=== PATIENT | male | born 1980 | race Caucasian/White ===

== ENCOUNTER 2021-09-24 00:47 | Day surgery (SDC) | payer OTHER, SELFPAY ==
[2021-09-09 13:40] VITALS: BMI 40.1
[2021-09-24 08:04] VITALS: BP 146/80; PULSE 66; RESP 18; TEMP 36.3; O2SAT 100
[2021-09-24] MEDS: LACTATED RINGERS 1,000 ML 150 ML IV CONT (08:11)
--- NOTE | 2021-09-24 08:12 | WPDANESEPPF ---
Anes - Initial Pre Proc Eval Procedure: Operation Date: 09/24/21 09:00 Proposed Procedures p Esophagogastroduodenoscopy - Patrice Vance MD Date/Time: 09/24/21 08:12 Surgeon: Patrice Vance MD Pre Op Diagnosis: Mendez's Esophagus Patient Data Age: 40 Gender: M Height: 1.78 m Weight: 128.3 kg Last Vital Signs Temp 36.3 C L 09/24/21 08:04 Pulse 66 09/24/21 08:04 Resp 18 09/24/21 08:04 BP 146/80 H 09/24/21 08:04 Pulse Ox 100 09/24/21 08:04 O2 Del Method Room Air 09/24/21 08:04 Allergies Allergy/AdvReac Type Severity Reaction Status Date / Time prochlorperazine Allergy Mild Jittery Verified 09/24/21 08:02 [From Compazine] lisinopril AdvReac Cough Verified 09/24/21 08:02 Home Medications Medication Instructions Recorded Confirmed Type esomeprazole magnesium 40 mg 40 mg PO DAILY #90 caps 09/23/21 09/24/21 Rx capsule,delayed release (Nexium) losartan 50 mg-hydrochlorothiazide 1 tablet PO DAILY #90 tabs 09/23/21 09/24/21 Rx 12.5 mg tablet valacyclovir 1 gram tablet 2,000 mg PO Q12H PRN Cold Sores 09/23/21 09/24/21 Rx #20 tabs Patient hx anesthesia problems: none Family hx anesthesia problems: none Results Review: All pre-operative results and documents have been reviewed as part of the pre-operative evaluation. [facility] Past Medical History Medical History Adynamic ileus Dehydration Essential (primary) hypertension GERD (gastroesophageal reflux disease) With history of Mendez esophagus. History of small bowel obstruction Resolved with conservative treatment. Hx of migraines Small bowel obstruction due to adhesions Surgical History Surgical History History of repaired congenital digestive system anomaly Congenital diaphragmatic hernia History of tonsillectomy S/P left inguinal herniorrhaphy Status post appendectomy Status post cholecystectomy 2006. Family History Family History Mother Family history of thyroid disease Family history of mental disorder Hypertension Father Hypertension Social History Social History Social History: He is and lives with his , Celia, and ER nurse here at [place], and there 2 children in [place]. 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 Clounga. He denies alcohol, tobacco, and drug abuse. He is a full code. Smoking status: Never smoker Drinks per week: 1 Alcohol use details: occasional, social Anes - Eval Final PreProcedure Day of Procedure 09/24/21 08:12 Patient weight: morbidly obese Heart: regular rate and rhythm Lungs: clear to auscultation Neurological: alert and oriented Last oral intake: >/= 8 hours ASA classification: III Emergent: no Anesthetic plan: proceed Anesthesia type and monitoring: general GIVS and standard monitoring Results Review: All pre-operative results and documents have been reviewed as part of the pre-operative evaluation. Informed Consent: The patient's anesthetic plan and its attendant risks and benefits were discussed with the patient/family/POA. Questions were solicited and answers provided to the satisfaction of the patient/family/POA.
--- NOTE | 2021-09-24 08:19 | PM.IMHP ---
H&P: HPI History of Present Illness Date/Time: 09/24/21 08:19 Chief Complaint: Barretts esophagus Narrative: this is a 40-year-old white male patient who presents for screening EGD. Patient known to have Barretts esophagus. Currently is stable denies any heartburn. Has had no dysphagia or bleeding. Currently may need on Nexium 40mg p.o. daily. He does report over last 2 weeks the sensation of a pill or popcorn caught in his throat. This does not interfere with swallowing. [facility] Past Medical History Medical History Adynamic ileus Dehydration Essential (primary) hypertension GERD (gastroesophageal reflux disease) With history of Mendez esophagus. History of small bowel obstruction Resolved with conservative treatment. Hx of migraines Small bowel obstruction due to adhesions Surgical History Surgical History History of repaired congenital digestive system anomaly Congenital diaphragmatic hernia History of tonsillectomy S/P left inguinal herniorrhaphy Status post appendectomy Status post cholecystectomy 2006. Family History Family History Mother Family history of thyroid disease Family history of mental disorder Hypertension Father Hypertension Social History Social History Social History: He is and lives with his , Celia, and ER nurse here at [place], and there 2 children in [place]. 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 He denies alcohol, tobacco, and drug abuse. He is a full code. Smoking status: Never smoker Drinks per week: 1 Alcohol use details: occasional, social Meds Home Medications and Allergies Home Medications Medication Instructions Recorded Confirmed Type esomeprazole magnesium 40 mg 40 mg PO DAILY #90 caps 09/23/21 09/24/21 Rx capsule,delayed release (Nexium) losartan 50 mg-hydrochlorothiazide 1 tablet PO DAILY #90 tabs 09/23/21 09/24/21 Rx 12.5 mg tablet valacyclovir 1 gram tablet 2,000 mg PO Q12H PRN Cold Sores 09/23/21 09/24/21 Rx #20 tabs Allergies Allergy/AdvReac Type Severity Reaction Status Date / Time prochlorperazine Allergy Mild Jittery Verified 09/24/21 08:02 [From Compazine] lisinopril AdvReac Cough Verified 09/24/21 08:02 Vital Signs Vital Signs - 24 hr 09/24/21 08:04 Temperature 97.4 F L Pulse Rate 66 Respiratory Rate 18 Blood Pressure 146/80 H Pulse Oximetry 100 Oxygen Delivery Room Air Exam Narrative: Physical exam reveals patient to be alert. Vital signs stable. HEENT exam is unremarkable. Patient is anicteric. Lungs are clear to auscultation and percussion. Heart is without murmur or extra sounds. Abdominal exam bowel sounds present soft nontender with no organomegaly. Digital external rectal exam is normal. Assessment and Plan Assessment and plan (1) Mendez's esophagus: Code(s): K22.70 - Mendez's esophagus without dysplasia Status: Acute Assessment and Plan: Patient has a history of Barretts esophagus. Currently appears stable with Nexium 40mg p.o. daily. Surveillance EGD is advised now on at 3 year intervals in the future. As he approaches age 43 suggest all info at age 43 he also have screening colonoscopy.
[2021-09-24 09:20] VITALS: BP 122/77; PULSE 60; RESP 16; O2SAT 100
[2021-09-24 09:30] VITALS: BP 118/75; PULSE 60; RESP 16; O2SAT 100
[2021-09-24 09:40] VITALS: BP 133/74; PULSE 60; RESP 18; O2SAT 100
== END 2021-09-24 09:52 | disposition home or self-care (01) ==
PROVIDERS: PCP Family Medicine; Visit Provider Internal Medicine Gastroenterology
PROC: 0DJ08ZZ Inspection of Upper Intestinal Tract, Via Natural or Artificial Opening Endoscopic (ICD-10-PCS; CPT 43235; principal; 2021-09-24 09:00)
DX: K22.70 Barrett's esophagus without dysplasia (principal); K56.0 Paralytic ileus; I10 Essential (primary) hypertension; K21.9 Gastro-esophageal reflux disease without esophagitis; E66.01 Morbid (severe) obesity due to excess calories; Z68.41 Body mass index [BMI] 40.0-44.9, adult
CPT/HCPCS: 43239; 88305; J2704; J7120

== ENCOUNTER 2021-09-24 07:16 | Outpatient (CLI) | payer OTHER, SELFPAY ==
[2021-09-24 07:39] LABS: Basophils Percent Auto 0.4 % (0.2-1.2); Eosinophils Absolute Auto 0.1 K/mm3 (0-0.3); Eosinophils Percent Auto 2.5 % (0-4.4); Hematocrit 46.5 % (42.0-52.0); Hemoglobin 15.6 g/dL (14.0-18.0); Immature Granulocyte Absolute 0.01 K/mm3 (0.00-0.031); Immature Granulocyte Percent A 0.2 % (0-0.5); Lymphocytes Absolute Auto 1.63 K/mm3 (0.9-3.2); Lymphocytes Percent Auto 31.7 % (18.3-44.2); Mean Corpuscular HGB Conc 33.5 g/dl (32-36); Mean Corpuscular Volume 86.4 fl (80-100); Mean Platelet Volume 9.4 fl (7.4-10.4); Monocytes Absolute Auto 0.5 K/mm3 (0.1-0.6); Monocytes Percent Auto 9.5 % (2.6-8.5); Neutrophils Absolute Auto 2.9 K/mm3 (1.3-6.7); Neutrophils Percent Auto 55.7 % (45.5-73.1); Platelet Count Result 233 k/mm3 (150-375); Red Blood Count 5.38 M/mm3 (4.6-6.20); Red Cell Distribution Width 12.7 % (11.5-14.5); White Blood Count 5.1 K/mm3 (4.5-10.0)
[2021-09-24 07:52] LABS: Alanine Aminotransferase 51 U/L (6-50); Albumin Level 4.3 g/dL (3.5-5.1); Alkaline Phosphatase 48 U/L (38-126); Anion Gap 8 mmol/L (8-16); Aspartate Amino Transferase 31 U/L (17-59); Bilirubin,Total 0.6 mg/dL (0.2-1.3); Blood Urea Nitrogen 17 mg/dL (9-20); Calcium 9.2 mg/dL (8.4-10.2); Carbon Dioxide 26 mmol/L (22-30); Chloride 104 mmol/L (98-107); Cholesterol 208 mg/dL (0-200); Estimated Glomerular Filt Rate > 60; Glucose 109 mg/dL (65-110); HDL Direct 28 mg/dL; Potassium 4.3 mmol/L (3.4-5.0); Sodium 138 mmol/L (137-145); Triglycerides 182 mg/dL (<150)
[2021-09-24 08:03] LABS: LDL Cholesterol Direct 124 mg/dL
== END 2021-09-24 07:17 | disposition home or self-care (01) ==
PROVIDERS: PCP Family Medicine; Visit Provider Physician Assistant
DX: Z00.00 Encounter for general adult medical examination without abnormal findings (principal)
CPT/HCPCS: 36415; 80053; 80061; 84443; 85025

== ENCOUNTER 2021-12-13 15:18 | Outpatient (CLI) | payer OTHER, SELFPAY ==
--- NOTE | 2021-12-13 15:27 | ECG_ITS ---
Measurements Intervals [place] Rate: 63 P: 20 GA: 163 QRS: 14 QRSD: 101 T: 10 QT: 400 QTc: 412 Interpretive Statements SINUS RHYTHM NO PREVIOUS ECG AVAILABLE FOR COMPARISON Electronically Signed On 12-14-2021 13:10:49 CDT by Estee Mcneill M.D.
[2021-12-13 16:17] LABS: Anion Gap 11 mmol/L (8-16); Blood Urea Nitrogen 12 mg/dL (9-20); Calcium 8.9 mg/dL (8.4-10.2); Carbon Dioxide 27 mmol/L (22-30); Chloride 101 mmol/L (98-107); Estimated Glomerular Filt Rate > 60; Glucose 93 mg/dL (65-110); Potassium 3.7 mmol/L (3.4-5.0); Sodium 139 mmol/L (137-145)
== END 2021-12-13 15:19 | disposition home or self-care (01) ==
LOC: ANHSURGERY 15:22
PROVIDERS: Anesthesiology; PCP Family Medicine; Visit Provider Otolaryngology
DX: I10 Essential (primary) hypertension (principal); Z01.818 Encounter for other preprocedural examination
CPT/HCPCS: 36415; 80048; 93005

== ENCOUNTER 2021-12-17 01:46 | Day surgery (SDC) | payer OTHER, SELFPAY ==
--- NOTE | 2021-12-07 08:48 | SUR.PREOP ---
Report to the Outpatient Waiting Room, entrance under the green pavilion located off [facility], at time 0945 on date 12/17/21. OR Time: 1145. Time changes happen often and if your time is changed the preop area will call you the afternoon before. - You and your visitor will be asked to self-screen and do not enter if you have any COVID symptoms. - Only one visitor and NO children visitors are allowed at this time. - The patient visitor is requested to leave or wait in car when not with patient due to restrictions. - A mask is required within the hospital. Patients may have clear liquids (water, carbonated beverages, clear teas, apple juice) until 3 hours prior to surgery with a maximum of 20 ounces. - NO CLEAR LIQUIDS AFTER 0845 - No food from midnight until time of surgery - Infants may have breast milk until 4 hours before surgery, infant formula 6 hours prior to surgery. - Children will be allowed to drink immediately following surgery. If applicable, please bring a bottle or sippy cup to assist with drinking. Juice, water, soda, and popsicles are readily available. For infants on formula, please bring formula the day of surgery. Pacifiers are allowed. Take the following medications with a SIP of water the morning of surgery: NONE Please no make-up, nail malagasy, hairspray, perfume, deodorant, or body powder the day of surgery. No jewelry (including any body piercings) or valuables the day of surgery, leave them at home. Please take a shower or bath the night before, or the morning of, surgery with an antibacterial soap. Wear comfortable, loose fitting clothing. Children are encouraged to wear pajamas. - Jewelry must be removed prior to entering the operating room. Rings and piercings that are not removed may be cut off. - The hospital will not accept responsibility for valuables. - Please leave all valuables, including medications, at home the day of surgery. If you are going home after surgery, a licensed electric truck driver must drive you home. - NO public transportation without another adult. - We recommend that an adult stay with you for 24 hours following discharge. - We also recommend that you do not drive, make important decision, drink alcoholic beverages, or take any drugs that were not prescribed by your health care provider for at least 24 hours after your discharge time. For Pediatric surgeries, we recommend two adults accompany the child home (only one inside the building at this time). Follow any additional instructions given to you from your surgeon. If you or anyone in your household have experienced Covid symptoms in the past week, please notify your surgeon or the nurse liaison at the phone number below for possible testing. Telephone instructions given to ESTEVAN OWENS and asked if any additional questions and then verbalized understanding. Patient advised to call surgeon office or pre surgery nurse liaison [phone] if any additional questions.
[2021-12-07 09:16] VITALS: BMI 39.5
--- NOTE | 2021-12-16 11:40 | P.HP_ITS ---
H&P: HPI History of Present Illness Date/Time: 12/16/21 11:40 Chief Complaint: Globus sensation vocal cord leukoplakia Narrative: planned surgical procedure/biopsy Review of Systems Review of Systems: All systems reviewed & are unremarkable except as noted in HPI and below PMFSH Past Medical History Medical History Adynamic ileus Dehydration Essential (primary) hypertension GERD (gastroesophageal reflux disease) With history of Mendez esophagus. History of small bowel obstruction Resolved with conservative treatment. Hx of migraines Small bowel obstruction due to adhesions Surgical History Surgical History History of repaired congenital digestive system anomaly Congenital diaphragmatic hernia History of tonsillectomy S/P left inguinal herniorrhaphy Status post appendectomy Status post cholecystectomy 2006. Family History Family History Mother Family history of thyroid disease Family history of mental disorder Hypertension Father Hypertension Social History Social History Social History: He is and lives with his , Celia, and ER nurse here at [place], and there 2 children in [place]. 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 He denies alcohol, tobacco, and drug abuse. He is a full code. Smoking status: Never smoker Drinks per week: 1 Alcohol use details: occasional, social Spiritual care concerns: No Meds Home Medications and Allergies Home Medications Medication Instructions Recorded Confirmed Type esomeprazole magnesium 40 mg 40 mg PO DAILY #90 caps 09/23/21 12/07/21 Rx capsule,delayed release (Nexium) losartan 50 mg-hydrochlorothiazide 1 tablet PO DAILY #90 tabs 09/23/21 12/07/21 Rx 12.5 mg tablet valacyclovir 1 gram tablet 2,000 mg PO Q12H PRN Cold Sores 09/23/21 12/07/21 Rx #20 tabs azelastine 137 mcg (0.1 %) nasal 1 spray intranasal DAILY 12/07/21 12/07/21 History spray aerosol Allergies Allergy/AdvReac Type Severity Reaction Status Date / Time lisinopril Allergy Severe Cough Verified 12/07/21 08:59 prochlorperazine Allergy Severe Jittery Verified 12/07/21 08:59 [From Compazine] Exam Narrative: normal ENT exam boggy sinonasal mucosa Assessment and Plan Assessment and plan (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
--- NOTE | 2021-12-17 07:19 | WPDHPUPDATE1 ---
History and Physical Update Update Date/Time: 12/17/21 07:19 History and Physical has been reviewed, including an updated exam of the patient. There are NO changes in the patient's condition. Risks, benefits, and alternatives have been discussed and questions answered. Patient agrees to proceed with procedure.
[2021-12-17 09:05] VITALS: BP 145/88; PULSE 69; RESP 18; TEMP 36.1; O2SAT 99
[2021-12-17] MEDS: LACTATED RINGERS 1,000 ML 30 ML IV CONT (09:11)
[2021-12-17] MEDS: MIDAZOLAM HCL (*CRX) 2 MG/2 ML VIAL IV PUSH (09:40)
--- NOTE | 2021-12-17 09:49 | WPDANESEPPF ---
Anes - Initial Pre Proc Eval Procedure: Operation Date: 12/17/21 10:45 Proposed Procedures p Direct Laryngoscopy, with Biopsy and Endoscope - Ted Alarcon MD Date/Time: 12/17/21 09:49 Surgeon: Ted Alarcon MD Pre Op Diagnosis: vocal cord leukoplakia Patient Data Age: 41 Gender: M Height: 1.78 m Weight: 127.3 kg Last Vital Signs Temp 36.1 C L 12/17/21 09:05 Pulse 69 12/17/21 09:05 Resp 18 12/17/21 09:05 BP 145/88 H 12/17/21 09:05 Pulse Ox 99 12/17/21 09:05 O2 Del Method Room Air 12/17/21 09:05 Allergies Allergy/AdvReac Type Severity Reaction Status Date / Time lisinopril Allergy Severe Cough Verified 12/17/21 09:25 prochlorperazine Allergy Severe Jittery Verified 12/17/21 09:25 [From Compazine] Home Medications Medication Instructions Recorded Confirmed Type esomeprazole magnesium 40 mg 40 mg PO DAILY #90 caps 09/23/21 12/17/21 Rx capsule,delayed release (Nexium) losartan 50 mg-hydrochlorothiazide 1 tablet PO DAILY #90 tabs 09/23/21 12/17/21 Rx 12.5 mg tablet valacyclovir 1 gram tablet 2,000 mg PO Q12H PRN Cold Sores 09/23/21 12/17/21 Rx #20 tabs azelastine 137 mcg (0.1 %) nasal 1 spray intranasal DAILY 12/07/21 12/17/21 History spray aerosol Patient hx anesthesia problems: none Family hx anesthesia problems: none Results Review: All pre-operative results and documents have been reviewed as part of the pre-operative evaluation. [facility] Past Medical History Medical History Adynamic ileus Dehydration Essential (primary) hypertension GERD (gastroesophageal reflux disease) With history of Mendez esophagus. History of small bowel obstruction Resolved with conservative treatment. Hx of migraines Small bowel obstruction due to adhesions Surgical History Surgical History History of repaired congenital digestive system anomaly Congenital diaphragmatic hernia History of tonsillectomy S/P left inguinal herniorrhaphy Status post appendectomy Status post cholecystectomy 2006. Family History Family History Mother Family history of thyroid disease Family history of mental disorder Hypertension Father Hypertension Social History Social History Social History: He is and lives with his , Celia, and ER nurse here at [place], and there 2 children in [place]. 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 He denies alcohol, tobacco, and drug abuse. He is a full code. Smoking status: Never smoker Drinks per week: 1 Alcohol use details: occasional, social Living arrangements: with family Spiritual care concerns: No Anes - Eval Final PreProcedure Day of Procedure 12/17/21 09:49 Patient weight: morbidly obese Heart: regular rate and rhythm Lungs: clear to auscultation Airway: Mallampati scale class II Neurological: alert and oriented Last oral intake: >/= 8 hours ASA classification: III Emergent: no Anesthetic plan: proceed Anesthesia type and monitoring: general ETT and standard monitoring Results Review: All pre-operative results and documents have been reviewed as part of the pre-operative evaluation. Informed Consent: The patient's anesthetic plan and its attendant risks and benefits were discussed with the patient/family/POA. Questions were solicited and answers provided to the satisfaction of the patient/family/POA.
[2021-12-17 11:42] VITALS: BP 131/83; PULSE 64; RESP 16; TEMP 36.2; O2SAT 100
--- NOTE | 2021-12-17 11:51 | P.OP_ITS ---
Procedure Note - Detailed Date of Procedure 12/17/21 Pre-op Diagnosis vocal cord leukoplakia, left-sided Post-op Diagnosis Same Procedure Performed direct laryngoscopy biopsy of left posterior true vocal cord Surgeon Ted Alarcon MD Anesthesia General Indications see above Findings left posterior cord leukoplakia excess skin tissue biopsied non sinister appearing minimal bleeding Description of Procedure patient identified consent verified. Patient brought operating room. Time-out performed. General anesthesia induced, slightly difficult airway glide scope at be used endotracheal tube secured. Patient prepped pat prepped draped bed rotated. Dedo laryngoscope utilized adequate view of the posterior cords visualized. This occurred after the placement of a maxillary tooth mouth guard. Patient was then placed in suspension. Left leukoplakic region biopsied after LT applied. Endoscope utilized. Bleeding controlled with application of Afrin- soaked pledgets. Laryngoscope removed patient taken out of suspension maxillary tooth mouth guard removed. Care the patient given Anesthesiology blood loss essentially 0. I performed all dictated portions of the procedure. patient taken to PACU. Drains No Packing No Pathology Yes Complications No immediate complications Condition Stable Disposition PACU
[2021-12-17 11:55] VITALS: BP 121/77; PULSE 60; RESP 14; O2SAT 100
[2021-12-17 12:10] VITALS: BP 133/85; PULSE 76; RESP 18; O2SAT 99
[2021-12-17 12:17] VITALS: BP 140/94; PULSE 68; RESP 18
[2021-12-17 12:40] VITALS: BP 140/86; PULSE 66
== END 2021-12-17 12:50 | disposition home or self-care (01) ==
PROVIDERS: PCP Family Medicine; Visit Provider Otolaryngology
PROC: 0CJS8ZZ Inspection of Larynx, Via Natural or Artificial Opening Endoscopic (ICD-10-PCS; CPT 31535; principal; 2021-12-17 10:45)
DX: J38.3 Other diseases of vocal cords (principal); K56.0 Paralytic ileus; I10 Essential (primary) hypertension; K21.9 Gastro-esophageal reflux disease without esophagitis; Z90.49 Acquired absence of other specified parts of digestive tract; E66.01 Morbid (severe) obesity due to excess calories; Z68.41 Body mass index [BMI] 40.0-44.9, adult
CPT/HCPCS: 31535; 88305; A9270; J0330; J2250; J2405; J2704; J3010; J7120

== ENCOUNTER 2022-02-10 16:39 | Outpatient (CLI) | payer OTHER, SELFPAY ==
--- NOTE | ~2022-02-10 | XR_ITS ---
XR knee LT min 4V 02/10/2022 17:14 Indication: Left knee pain for one year Procedure: 4 views left knee Comparison: No prior studies for comparison. Findings: There is anatomic alignment. No fracture, subluxation or dislocation. No significant joint space narrowing. No joint effusion. Impression: 1: No significant bone or joint abnormality. Reviewed, dictated and finalized at location A. IZATION REVIEWER Impression: 1: No significant bone or joint abnormality.
== END 2022-02-10 16:40 | disposition home or self-care (01) ==
LOC: ANHIMG 16:43
PROVIDERS: PCP Family Medicine; Visit Provider Physician Assistant
DX: M25.562 Pain in left knee (principal)
CPT/HCPCS: 73564

== ENCOUNTER → 2022-04-23 07:34 | Outpatient (CLI) | payer OTHER, SELFPAY ==
--- NOTE | ~2022-04-23 | MR_ITS ---
EXAMINATION: MR knee LT wo con DATE: 04/23/2022 08:13 INDICATION: Generalized knee pain. TECHNIQUE: Magnetic resonance imaging (MRI) of the left knee was performed without intravenous contra st. Sequences included axial PD-weighted FS FSE, coronal PD-weighted FSE and PD-weighted FS FSE, sagi ttal PD-weighted FSE, and sagittal T2-weighted FS FSE. COMPARISON: X-ray left knee 03/29/2022, images only. FINDINGS: Medial compartment: Intact meniscus no focal cartilage defect. Lateral compartment: No focal cartilage defect. Patellofemoral compartment: 6 mm focal near full-thickness cartilage defect with fraying and subjacent subchondral cyst formation in the superior aspect of the median ridge. Cartilage otherwise intact. Retinacula intact. Ligaments and tendons: ACL, PCL, MCL, and LCL are intact. Remaining flexor and extensor tendons are intact. Fluid: Small volume joint fluid. Osseous/other: No suspicious focal or diffuse marrow signal. IMPRESSION: 1. No internal derangement. 2. Chondromalacia patellae. 3. Small left knee joint effusion. Reviewed, dictated and finalized at location K. STRAIGHTENER
== END ==
PROVIDERS: Visit Provider Nurse Practitioner Family
DX: M25.462 Effusion, left knee (principal)
CPT/HCPCS: 73721

== ENCOUNTER 2022-09-07 20:23 | Emergency (ER) | payer OTHER, SELFPAY ==
--- NOTE | ~2022-09-07 | CT_ITS ---
EXAMINATION: CT abdomen pelvis wo con DATE: 09/07/2022 20:57 INDICATION: Left flank pain TECHNIQUE: Computed tomography (CT) of the abdomen and pelvis was performed without intravenous contr ast. Automated exposure control and iterative reconstruction technique were employed. Exam dose: 241 4.59 mGy-cm total exam DLP. COMPARISON: 01/09/2019 CT abdomen pelvis FINDINGS: The lung bases are clear of infiltrate or consolidation. Surgical clips are noted at the posterior aspect of the left lower lobe. There is chronic prominent f at density in the posterior lower left thoracic cavity, apparently related to foramen of Bochdalek he rnia. Prominent fat-containing left anterolateral abdominal spigelian hernia, also present on 01/09/2019.. Normal heart size. No pericardial or pleural effusion. Status post cholecystectomy. No bile duct or pancreatic duct dilatation. No hepatic, splenic, pancreatic, adrenal or renal space-occupying mass lesion is detected. Normal caliber of the abdominal aorta. No intraperitoneal or retroperitoneal or pelvic mass lesion or adenopathy or ascites. There is a prominent of fecal material in the colon. No bowel obstruction or intraperitoneal free air is detected. The urinary bladder and prostate gland are unremarkable. Bilateral fat-containing inguinal hernias and very small fat-containing umbilical hernia. No suspicious osteolytic or osteoblastic lesions are noted. IMPRESSION: Large chronic fat-containing foramen of Bochdalek hernia Large chronic fat-containing left abdominal spigelian hernia No urinary tract calculus or hydroureteronephrosis Status post cholecystectomy Reviewed, dictated and finalized at [facility]. Reviewed, dictated and finalized at [facility].
[2022-09-07 20:30] VITALS: BP 156/106; RESP 18; TEMP 36.6; O2SAT 99
[2022-09-07 20:56] LABS: Basophils Percent Auto 0.7 % (0.2-1.2); Eosinophils Absolute Auto 0.2 K/mm3 (0-0.3); Eosinophils Percent Auto 3.4 % (0-4.4); Hematocrit 46.2 % (42.0-52.0); Immature Granulocyte Absolute 0.01 K/mm3 (0.00-0.031); Immature Granulocyte Percent A 0.2 % (0-0.5); Lymphocytes Absolute Auto 2.52 K/mm3 (0.9-3.2); Lymphocytes Percent Auto 43.2 % (18.3-44.2); Mean Corpuscular HGB Conc 34.6 g/dl (32-36); Mean Corpuscular Volume 86.7 fl (80-100); Mean Platelet Volume 9.8 fl (7.4-10.4); Monocytes Absolute Auto 0.5 K/mm3 (0.1-0.6); Monocytes Percent Auto 8.6 % (2.6-8.5); Neutrophils Absolute Auto 2.6 K/mm3 (1.3-6.7); Neutrophils Percent Auto 43.9 % (45.5-73.1); Platelet Count Result 218 k/mm3 (150-375); Red Blood Count 5.33 M/mm3 (4.6-6.20); Red Cell Distribution Width 12.6 % (11.5-14.5); White Blood Count 5.8 K/mm3 (4.5-10.0)
[2022-09-07] MEDS: ACETAMINOPHEN 500 MG TABLET 1000 MG PO (21:06)
[2022-09-07] MEDS: HYDROmorphone HCL INJ (*CRX) 1 MG/ML SYR 0.5 MG IV PUSH (21:06)
[2022-09-07] MEDS: SODIUM CHLORIDE 0.9% IV 2,000 ML 999 ML IV CONT (21:07)
[2022-09-07 21:12] LABS: Alanine Aminotransferase 53 U/L (6-50); Albumin Level 4.3 g/dL (3.5-5.1); Alkaline Phosphatase 53 U/L (38-126); Anion Gap 7 mmol/L (8-16); Aspartate Amino Transferase 49 U/L (17-59); Bilirubin,Total 0.5 mg/dL (0.2-1.3); Blood Urea Nitrogen 14 mg/dL (9-20); Calcium 8.7 mg/dL (8.4-10.2); Carbon Dioxide 30 mmol/L (22-30); Chloride 103 mmol/L (98-107); Estimated Glomerular Filt Rate > 60; Glucose 120 mg/dL (65-110); Potassium 3.9 mmol/L (3.4-5.0); Sodium 140 mmol/L (137-145)
[2022-09-07 21:14] VITALS: PULSE 67; RESP 24; O2SAT 99
[2022-09-07 21:15] VITALS: PULSE 73; RESP 21; O2SAT 98
[2022-09-07] MEDS: methocarbamoL 750 MG TABLET 1500 MG PO (21:15)
[2022-09-07 21:23] LABS: Lipase 51 U/L (23-300)
[2022-09-07 21:30] VITALS: PULSE 71; RESP 20; O2SAT 98
[2022-09-07 21:40] LABS: Appearance Urine Clear (Clear); Bilirubin Urine Negative (Negative); Blood Urine Negative (Negative); Color Urine Yellow (Yellow); Glucose Urine UA Negative (Negative); Ketones Urine Negative (Negative); Leukocyte Esterase Ur Negative LEU/UL (Negative); Nitrate Urine Negative (Negative); Protein Urine Negative (Negative)
[2022-09-07 21:45] VITALS: PULSE 71; RESP 17; O2SAT 98
[2022-09-07 21:46] LABS: Add Urine Microscopic? NO
[2022-09-07 22:00] VITALS: PULSE 78; RESP 17
--- NOTE | 2022-09-07 22:04 | ED.GENADULT ---
HPI - General Adult General Chief complaint: Urogenital-Male Stated complaint: left flank pain Time Seen by Provider: 09/07/22 20:27 History of Present Illness HPI narrative: This is a 41-year-old male presenting ED with chief complaint of left-sided back pain. Patient said the pain started Monday morning was originally stabbing pain but is now transitioned into an achy pain. It is primarily in his left lower back. It is 5 out 10 intensity and comes and goes. He has had pain like this in the past and thought it may have been a kidney stone but never was evaluated by physician. The pain is worse with movement. He has not taken anything for pain control. He did have an episode of testicular pain on the right side although that has resolved he has no complaints at this time. patient does do weightlifting and has recently taken up disc golf. Related Data Home Medications Medication Instructions Recorded Confirmed azelastine 137 mcg (0.1 %) nasal 1 spray intranasal DAILY 12/07/21 02/08/22 spray aerosol Allergies Allergy/AdvReac Type Severity Reaction Status Date / Time lisinopril Allergy Severe Cough Verified 09/07/22 20:24 prochlorperazine Allergy Severe Jittery Verified 09/07/22 20:24 [From Compazine] PMF Past Medical History Medical History Adynamic ileus Defect of articular cartilage Dehydration Essential (primary) hypertension GERD (gastroesophageal reflux disease) With history of Mendez esophagus. History of small bowel obstruction Resolved with conservative treatment. Hx of migraines Left knee pain Medial meniscus tear Small bowel obstruction due to adhesions Surgical History Surgical History History of repaired congenital digestive system anomaly Congenital diaphragmatic hernia History of tonsillectomy S/P left inguinal herniorrhaphy Status post appendectomy Status post cholecystectomy 2006. Family History Family History Mother Family history of thyroid disease Family history of mental disorder Hypertension Father Hypertension Social History Social History Social History: He is and lives with his , Celia, and ER nurse here at [place], and there 2 children in [place]. 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 He denies alcohol, tobacco, and drug abuse. He is a full code. Smoking status: Never smoker Alcohol intake: current Drinks per week: 1 Alcohol use details: occasional, social Substance use type: does not use Lack of Transportation: No Lack of Food: Never True Current Housing: I Have Housing Concerned About Future Housing: No Difficulty Paying Gas/Electric Bills: No Difficulty Paying for Meds: No Currently Unemployed: No Education: Associate Degree Difficulty w/ Childcare or Family Care: No Living arrangements: with family Spiritual care concerns: No Exam Narrative: APPEARANCE: No apparent distress. Head: atraumatic. EYES: EOMI, NOSE: Atraumatic NECK: Trachea midline RESPIRATORY: No increased rate of breathing CARDIOVASCULAR: RRR, ABDOMINAL: soft nontender no guarding or rebound, no CVA tenderness. Testicle exam: No tenderness of the testicle, swelling or overlying skin changes. MUSCULOSKELETAl: no midline spinal tenderness. No tenderness in the paralumbar muscles. NEURO: Alert. Moving 4/4 extremities SKIN:: Warm, dry. Normal color PSYCHIATRIC: Normal affect Course Vital Signs Vital signs: Vital Signs Temperature 97.8 F 09/07/22 20:30 Respiratory Rate 18 09/07/22 20:30 Blood Pressure 156/106 H 09/07/22 20:30 Pulse Oximetry 99 09/07/22 20:30 Oxygen Delivery Room Air 09/07/22 20:30 Temperature 97.8 F 09/07/22 20:30 Pulse Rate 78
== END 2022-09-07 22:25 | disposition home or self-care (01) ==
PROVIDERS: Emergency Provider Emergency Medicine; PCP Family Medicine
DX: M54.50 Low back pain, unspecified (principal); I10 Essential (primary) hypertension; K21.9 Gastro-esophageal reflux disease without esophagitis; Z87.760 Personal history of (corrected) congenital diaphragmatic hernia or other congenital diaphragm malformations; Z90.49 Acquired absence of other specified parts of digestive tract
CPT/HCPCS: 36415; 74176; 80053; 81003; 83690; 85025; 96361; 96374; 99284; A9270; J1170; J7030

== ENCOUNTER 2023-01-29 02:51 | Inpatient (IN) | payer OTHER, SELFPAY ==
--- NOTE | ~2023-01-29 | CT_ITS ---
EXAMINATION: CT abdomen pelvis w con INDICATION: Abdominal pain, history of small bowel obstruction TECHNIQUE: Computed tomographic images of the abdomen and pelvis were obtained after the administrati on of 100 cc of Omnipaque 350 intravenous contrast. The dose-length product (DLP) was 1610.48 mGy-cm. Automated exposure control and iterative reconstruction technique were employed. COMPARISON: 09/08/2019 FINDINGS: Minimal dependent atelectasis is present in the lung bases. The heart size is normal. There is a left posterior diaphragmatic hernia containing fat. Changes of cholecystectomy are noted. The l iver, spleen, pancreas, gallbladder, and adrenal glands are normal. The kidneys are unremarkable. No pathologically enlarged abdominal or pelvic lymph nodes are identified. There are multiple dilated lo ops of small bowel. No abrupt transition point is identified. Stool is present in the large bowel. Th ere is no free intraperitoneal gas. There is mild lumbar spondylosis. There are bilateral L3 pars def ects. There is a spigelian hernia of the left lower quadrant containing fat there are bilateral ingui nal hernias containing fat as well as a tiny supraumbilical hernia.. IMPRESSION: 1. Dilated small bowel without abrupt transition point, consistent with adynamic ileus or partial obs truction. Reviewed, dictated and finalized at location [facility]. RGLASS BOAT ASSEMBLY SUPERVISOR IMPRESSION: 1. Dilated small bowel without abrupt transition point, consistent with adynami c ileus or partial obstruction.
--- NOTE | ~2023-01-29 | XR_ITS ---
EXAMINATION: XR sm bowel follow through DATE: 01/30/2023 10:02 INDICATION: Small bowel obstruction. TECHNIQUE: Oral contrast was administered, and a time course of radiographs of the abdomen was obtain ed. Fluoroscopy of the small bowel was not performed. Fluoroscopy exposure time was 0 minutes. The to franko number of images was 9. COMPARISON: CT abdomen and pelvis 01/29/2023 FINDINGS: The nasogastric tube tip is in the stomach. There are surgical clips in the upper abdomen. There are multiple dilated loops of proximal small bowel. Distal small bowel is decompressed. The colon is norm al in caliber. Transit time from the stomach to proximal colon was approximately 1 hour. IMPRESSION: 1. Dilated small bowel without transition point by CT with normal transit time to the colon, consiste nt with adynamic ileus. Reviewed, dictated and finalized at location [facility]. RMATICA MDM DEVELOPER IMPRESSION: 1. Dilated small bowel without transition point by CT with normal transit time to the colon, consistent with adynamic ileus.
--- NOTE | ~2023-01-29 | XR_ITS ---
Supine and upright views of the abdomen Clinical history: Small bowel obstruction COMPARISON: 01/30/2023 Findings: Bowel gas pattern is nonspecific. No evidence for obstruction or free air. No abnormal mass lesion or calcification is seen. Osseous structures are intact. Impression: Nonspecific bowel gas pattern. Reviewed, dictated and finalized at [facility]. HER SPONGER Impression: Nonspecific bowel gas pattern.
--- NOTE | ~2023-01-29 | XR_ITS ---
EXAMINATION: XR abdomen gastric tube insert INDICATION: Nasogastric tube insertion TECHNIQUE: Portable AP [id number] at 0544 hours COMPARISON: None available FINDINGS: The nasogastric tube is in the stomach. There are multiple dilated loops of small bowel. Co ntrast from earlier CT partially opacifies the urinary tract. IMPRESSION: 1. Nasogastric tube in the stomach. 2. Dilated small bowel, consistent with adynamic ileus versus partial obstruction. Reviewed, dictated and finalized at location [facility]. MOTIVE GENERATOR REPAIRER IMPRESSION: 1. Nasogastric tube in the stomach. 2. Dilated small bowel, consistent with adynamic ileus versus partial obstructi on.
[2023-01-29 02:56] VITALS: BP 155/100; PULSE 90; RESP 18; TEMP 36.6; O2SAT 98
[2023-01-29 03:28] LABS: Basophils Percent Auto 0.4 % (0.2-1.2); Eosinophils Absolute Auto 0.1 K/mm3 (0-0.3); Eosinophils Percent Auto 0.9 % (0-4.4); Hematocrit 49.8 % (42.0-52.0); Hemoglobin 16.4 g/dL (14.0-18.0); Immature Granulocyte Absolute 0.01 K/mm3 (0.00-0.031); Immature Granulocyte Percent A 0.1 % (0-0.5); Lymphocytes Absolute Auto 0.82 K/mm3 (0.9-3.2); Lymphocytes Percent Auto 11.7 % (18.3-44.2); Mean Corpuscular HGB Conc 32.9 g/dl (32-36); Mean Corpuscular Hemoglobin 29.2 pg (26-34); Mean Corpuscular Volume 88.6 fl (80-100); Mean Platelet Volume 9.8 fl (7.4-10.4); Monocytes Absolute Auto 0.7 K/mm3 (0.1-0.6); Neutrophils Absolute Auto 5.4 K/mm3 (1.3-6.7); Neutrophils Percent Auto 76.9 % (45.5-73.1); Platelet Count Result 211 k/mm3 (150-375); Red Blood Count 5.62 M/mm3 (4.6-6.20); Red Cell Distribution Width 13.1 % (11.5-14.5)
[2023-01-29 03:42] LABS: Alanine Aminotransferase 62 U/L (6-50); Albumin Level 4.3 g/dL (3.5-5.1); Alkaline Phosphatase 53 U/L (38-126); Anion Gap 10 mmol/L (8-16); Aspartate Amino Transferase 41 U/L (17-59); Bilirubin,Total 0.8 mg/dL (0.2-1.3); Blood Urea Nitrogen 12 mg/dL (9-20); Calcium 9.1 mg/dL (8.4-10.2); Carbon Dioxide 29 mmol/L (22-30); Chloride 100 mmol/L (98-107); Estimated CRCL calculation 94 ml/min; Estimated Glomerular Filt Rate > 60; Glucose 128 mg/dL (65-110); Lipase 37 U/L (23-300); Potassium 3.9 mmol/L (3.4-5.0); Sodium 139 mmol/L (137-145)
[2023-01-29 03:54] LABS: Appearance Urine Clear (Clear); Bacteria Urine None Seen /hpf; Bilirubin Urine 1+ (Negative); Blood Urine Negative (Negative); Color Urine Dark Yellow (Yellow); Glucose Urine UA Negative (Negative); Ketones Urine Trace mg/dL (Negative); Leukocyte Esterase Ur Negative LEU/UL (Negative); Nitrate Urine Negative (Negative); Non Pathogenic Casts 0-2; Protein Urine Trace mg/dL (Negative); RBC Urine 0-2 /hpf (0-2); Specific Grav Ur 1.035 (1.001-1.035); Squamous Epithelial Cell Urine None seen /hpf (Few); WBC Urine 0-5 /hpf; pH Urine 5.5 (5.0-9.0)
[2023-01-29 03:57] LABS: Add Urine Microscopic? YES
[2023-01-29 03:59] LABS: Lactic Acid Reflex 1.6 mmol/L (0.7-2.0)
[2023-01-29] MEDS: HYDROmorphone HCL INJ (*CRX) 1 MG/ML SYR 0.5 MG IV PUSH ×2 (04:51→05:57)
[2023-01-29 04:54] VITALS: BP 119/71; PULSE 90; RESP 15; O2SAT 97
--- NOTE | 2023-01-29 04:56 | ED.GENADULT ---
HPI - General Adult General Chief complaint: Abdominal Pain Stated complaint: abd pain, N/V Time Seen by Provider: 01/29/23 04:51 History of Present Illness HPI narrative: This is a 42-year-old male with recurrent small-bowel obstruction presenting with abdominal pain. Patient says he started developed bloating and abdominal discomfort 2 or 3 days ago, then last night it got acutely worse. Now patient is having nausea vomiting and distention. He has had multiple small-bowel obstructions in the past. They typically resolve without surgical intervention after decompression. Related Data Home Medications Medication Instructions Recorded Confirmed azelastine 137 mcg (0.1 %) nasal 1 spray intranasal DAILY 12/07/21 12/26/22 spray aerosol Allergies Allergy/AdvReac Type Severity Reaction Status Date / Time lisinopril Allergy Severe Cough Verified 12/26/22 16:31 prochlorperazine Allergy Severe Jittery Verified 12/26/22 16:31 [From Compazine] [facility] Past Medical History Medical History Adynamic ileus Defect of articular cartilage Dehydration Essential (primary) hypertension GERD (gastroesophageal reflux disease) With history of Mendez esophagus. History of small bowel obstruction Resolved with conservative treatment. Hx of migraines Left knee pain Medial meniscus tear Small bowel obstruction due to adhesions Surgical History Surgical History History of repaired congenital digestive system anomaly Congenital diaphragmatic hernia History of tonsillectomy S/P left inguinal herniorrhaphy Status post appendectomy Status post cholecystectomy 2006. Family History Family History Mother Family history of thyroid disease Family history of mental disorder Hypertension Father Hypertension Social History Social History Social History: He is and lives with his , Celia, and ER nurse here at [place], and there 2 children in [place]. 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 He denies alcohol, tobacco, and drug abuse. He is a full code. Smoking status: Never smoker Alcohol intake: current Drinks per week: 1 Alcohol use details: occasional, social Substance use type: does not use Lack of Transportation: No Lack of Food: Never True Current Housing: I Have Housing Concerned About Future Housing: No Difficulty Paying Gas/Electric Bills: No Difficulty Paying for Meds: No Currently Unemployed: No Education: Associate Degree Difficulty w/ Childcare or Family Care: No Living arrangements: with family Spiritual care concerns: No Exam Narrative: APPEARANCE: No apparent distress. Head: atraumatic. EYES: EOMI, NOSE: Atraumatic NECK: Trachea midline RESPIRATORY: No increased rate of breathing CARDIOVASCULAR: RRR, ABDOMINAL: Distended, tender to palpation MUSCULOSKELETAl: No obvious deformities NEURO: Alert. Moving 4/4 extremities SKIN:: Warm, dry. Normal color PSYCHIATRIC: Normal affect Course Vital Signs Vital signs: Vital Signs Temperature 97.8 F 01/29/23 02:56 Pulse Rate 90 01/29/23 02:56 Respiratory Rate 18 01/29/23 02:56 Blood Pressure 155/100 H 01/29/23 02:56 Pulse Oximetry 98 01/29/23 02:56 Oxygen Delivery Room Air 01/29/23 02:56 Temperature 97.8 F 01/29/23 02:56 Pulse Rate 90 01/29/23 04:54 Respiratory Rate 15 01/29/23 04:54 Blood Pressure 119/71 01/29/23 04:54 Pulse Oximetry 97 01/29/23 04:54 Oxygen Delivery Room Air 01/29/23 02:56 Medical Decision Making MDM Narrative Medical decision making narrative: -Course: 42-year-old male history of small-bowel obstruction presenting for abdominal pain. CT abdomen pelvis shows multiple dilated loops of bowel wh
[2023-01-29 06:30] VITALS: BP 113/64; PULSE 84; RESP 15; O2SAT 95
[2023-01-29 07:55] VITALS: BP 149/90; PULSE 98; RESP 16; TEMP 36.1; O2SAT 98; BMI 40.4
[2023-01-29] MEDS: LACTATED RINGERS 1,000 ML 125 ML IV CONT (08:01)
[2023-01-29 08:05] VITALS: BMI 40.2
--- NOTE | 2023-01-29 08:07 | ADMGEN ---
This patient, Feliciano Nair, was admitted to [facility] Surg Room 314-01. Patient/family oriented to hospital policies and general routines including ID bracelet, bed and alarms, visiting hours, pain management, procedures, bathroom and other care routines, personal items, smoking policy, room service/diet, and visiting hours. Information on how to activate the Rapid Response Team has been discussed. Patient/Family are encouraged to report perceived risks to care and to ask questions if they do not understand what they are told or what they should do.
[2023-01-29] MEDS: MORPHINE SULFATE (*CRX) 4 MG/ML INJ IV PUSH ×5 (10:41→21:23)
[2023-01-29] MEDS: ENOXAPARIN 30 MG/0.3 ML SYRINGE 40 MG SUB-Q (10:46)
[2023-01-29] MEDS: KCL 20MEQ/0.9% SOD CHL 1,000 ML 100 ML IV CONT ×2 (12:49→21:23)
[2023-01-29 13:30] VITALS: BP 123/59; PULSE 86; RESP 16; TEMP 36.9; O2SAT 96
--- NOTE | 2023-01-29 16:51 | PM.IMHP ---
H&P: HPI History of Present Illness Date/Time: 01/29/23 10:51 Chief Complaint: Abdominal pain and vomiting Narrative: Patient is a 42-year-old man who has a history of repair of congenital diaphragmatic hernia as a . He has also had laparoscopic cholecystectomy in 2006 and earlier appendectomy. Since at least 2001, he has had multiple episodes of recurrent small-bowel obstruction. After reviewing past records, it seems this is about the 10th episode in 11 years. His last episode was in 2019, nearly 4 years ago. The patient at this time developed abdominal pain and bloating about 3 days ago. He then noted increasing pain and abdominal distension. He then developed nausea and vomiting. Being aware of the symptoms of bowel obstruction, he came to the emergency room and was evaluated. His exam showed his abdomen to be distended and diffusely tender without any peritoneal signs. His white blood cell count was normal at 7000. Serum lactate and bicarb were both within the normal range. CT scan of the abdomen and pelvis did show multiple loops of dilated small bowel without a distinct transition point. It was felt to represent small bowel obstruction or ileus. A nasogastric tube was placed in the emergency room and a liter of gastric content was retrieved. He was admitted with nasogastric tube and IV fluids as well as analgesics. When I saw him this morning, he was feeling much better but still having some abdominal discomfort and tenderness. He is admitted now for abdominal pain and vomiting, most likely a recurrent small-bowel obstruction. His CT scan also showed some additional hernias. A left posterior diaphragmatic hernia containing fat was noted. There was also a small supraumbilical hernia and a left lower quadrant spigelian hernia containing fat. Finally there were fat containing bilateral inguinal hernias noted. Review of Systems Review of Systems: All systems reviewed & are unremarkable except as noted in HPI and below (HPI and those items noted below) Constitutional: Constitutional: Denies chills and Denies fever(s) Cardiovascular: Cardiovascular: Denies chest pain, Denies diaphoresis, Denies dyspnea and Denies paroxysmal nocturnal dyspnea Respiratory: Respiratory: Denies chest congestion, Denies cough and Denies dyspnea Integumentary/Breasts: Skin/Breast: Denies lesions and Denies rash ON LICENSE OF [facility] Past Medical History Medical History (Updated 01/29/23 @ 17:11 by Guanako Lawson MD) Adynamic ileus Defect of articular cartilage Dehydration Essential (primary) hypertension GERD (gastroesophageal reflux disease) With history of Mendez esophagus. History of small bowel obstruction Resolved with conservative treatment. Hx of migraines Left knee pain Medial meniscus tear Small bowel obstruction due to adhesions Surgical History Surgical History History of repaired congenital digestive system anomaly Congenital diaphragmatic hernia History of tonsillectomy S/P left inguinal herniorrhaphy Status post appendectomy Status post cholecystectomy 2006. Family History Family History Mother Family history of thyroid disease Family history of mental disorder Hypertension Father Hypertension Social History Social History Social History: He is and lives with his , Celia, and ER nurse here at [place], and there 2 children in [place]. 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 He denies alcohol, tobacco, and drug abuse. He is a full code. Smoking status: Never smoker Alcohol intake: current Drinks per week: 1 Alcohol use details: occasional, social Substance use type: does not use Lack of Transportation: No Lack of Food: Never True Current Housing: I Have Housing Concerned About Future Housing: No Dif
[2023-01-29] MEDS: PHENOL/SOD PHENO SPRAY CHERRY (*BKC) 1 SPRAY MUCOUS MEM (18:53)
[2023-01-29] MEDS: traZODone HCL 50 MG TABLET PO (20:23)
[2023-01-29 20:25] VITALS: BP 119/64; PULSE 83; RESP 18; TEMP 36.5; O2SAT 94
[2023-01-30 05:43] VITALS: BP 127/86; PULSE 77; RESP 16; TEMP 36.9; O2SAT 98
[2023-01-30 06:37] LABS: Hematocrit 44.1 % (42.0-52.0); Hemoglobin 14.9 g/dL (14.0-18.0); Mean Corpuscular HGB Conc 33.8 g/dl (32-36); Mean Corpuscular Hemoglobin 29.7 pg (26-34); Mean Platelet Volume 9.4 fl (7.4-10.4); Platelet Count Result 189 k/mm3 (150-375); Red Blood Count 5.01 M/mm3 (4.6-6.20); Red Cell Distribution Width 13.2 % (11.5-14.5); White Blood Count 4.2 K/mm3 (4.5-10.0)
[2023-01-30 06:48] LABS: Anion Gap 7 mmol/L (8-16); Blood Urea Nitrogen 12 mg/dL (9-20); Calcium 8.3 mg/dL (8.4-10.2); Carbon Dioxide 26 mmol/L (22-30); Chloride 107 mmol/L (98-107); Estimated CRCL calculation 102 ml/min; Estimated Glomerular Filt Rate > 60; Glucose 104 mg/dL (65-110); Potassium 3.9 mmol/L (3.4-5.0); Sodium 140 mmol/L (137-145)
[2023-01-30] MEDS: KCL 20MEQ/0.9% SOD CHL 1,000 ML 100 ML IV CONT (06:58)
[2023-01-30] MEDS: ENOXAPARIN 40 MG/0.4 ML SYRINGE SUB-Q (10:12)
[2023-01-30 14:00] VITALS: BP 149/87; PULSE 77; RESP 14; TEMP 36.3; O2SAT 97
--- NOTE | 2023-01-30 15:09 | PM.PNGS ---
Progress Note: A&P Assessment and Plan (1) Obstruction of small intestine due to peritoneal adhesion: Code(s): K56.50 - Intestinal adhesions [bands], unspecified as to partial versus complete obstruction Status: Acute Assessment and Plan: Seems to have resolved. I will go ahead and get a water-soluble contrast small-bowel follow-through. If shows normal transit, will discontinue nasogastric tube and try some liquids. (2) History of congenital diaphragmatic hernia: Code(s): Z87.760 - Personal history of (corrected) congenital diaphragmatic hernia or other congenital diaphragm malformations Status: Chronic Assessment and Plan: Repaired as an infant. Also had appendectomy at that same time. (3) Ventral hernia without obstruction or gangrene: Code(s): K43.9 - Ventral hernia without obstruction or gangrene Status: Chronic Assessment and Plan: As noted on CT scan (4) Spigelian hernia: Code(s): K43.9 - Ventral hernia without obstruction or gangrene Status: Chronic Assessment and Plan: As noted on CT scan Subjective Subjective Date/Time Seen: 01/30/23 07:49 Patient reports: no new complaints, feels better, pain is less (Small amount of bilateral lower quadrant abdominal tenderness but no pain), flatus, no bowel movement and afebrile Review of Systems Review of Systems: All systems reviewed & are unremarkable except as noted in HPI and below (HPI) Exam Const: General: comfortable and no acute distress Nutritional Appearance: overweight Orientation/consciousness: patient oriented x3 GI: Inspection: non-distended and scar (Upper abdominal scar, laparoscopic cholecystectomy scars) GI Palp: Yes Soft to palpation, No Tenderness to palpation present (GI), No Guarding due to palpation present (GI), No Hepatosplenomegaly present, No Ascites present and No Rebound tenderness present Auscultation: normoactive bowel sounds Neuro: General: patient oriented x3 and no focal motor deficits Extrem: General: no calf tenderness and no edema Psych: Affect: normal affect Insight: Good insight present (Psych) Judgement: Good judgement present (Psych) Objective Data Vital Signs Vital Signs: Vital Signs - 24 hr 01/29/23 20:25 01/30/23 05:43 01/30/23 14:00 Temperature 36.5 C 36.9 C 36.3 C L Pulse Rate 83 77 77 Respiratory Rate 18 16 14 Blood Pressure 119/64 127/86 149/87 H Pulse Oximetry 94 98 97 Intake/Output Intake/Output: Intake & Output 01/27/23 01/28/23 01/29/23 01/30/23 23:59 23:59 23:59 23:59 Intake Total 1000 2690 Output Total 1300 3150 Balance -300 -460 Meds/Results Medications: Active Medications Generic Name Dose Route Start Last Admin Trade Name Freq PRN Reason Stop Dose Admin Enoxaparin Sodium 40 mg 01/30/23 09:00 01/30/23 10:12 Enoxaparin 40 Mg/0.4 Ml Syringe SUB-Q 40 mg DAILY IRENE Administration Ibuprofen 800 mg in 200 mls @ 400 mls/hr 01/29/23 09:54 Caldolor 800 Mg/200 Ml IVPB Q6H PRN Pain Rated 1-3 Morphine Sulfate 2 mg 01/29/23 09:54 Morphine Sulfate (*Crx) 2 Mg/Ml Inj IV PUSH Q2H PRN Pain Rated 4-6 Morphine Sulfate 4 mg 01/29/23 09:54 01/29/23 21:23 Morphine Sulfate (*Crx) 4 Mg/Ml Inj IV PUSH 4 mg Q2H PRN Administration Pain Rated 7-10 Naloxone HCl 0.1 mg 01/29/23 09:54 Naloxone Hcl 0.4 Mg/Ml Vial IV PUSH Q2M PRN Opiate Reversal Phenol 1 spray 01/29/23 15:17 01/29/23 18:53 Phenol/Sod Pheno Charlotte Kitchen (*Bkc) MUCOUS MEM 1 spray PRN PRN Administration Sore Throat Trazodone HCl 50 mg 01/29/23 17:12 01/29/23 20:23 Trazodone Hcl 50 Mg Tablet PO 50 mg HS PRN Administration Insomnia Radiology Results: ITS Impressions Abdomen/Pelvis CT 01/29/23 06:14 IMPRESSION: 1. Dilated small bowel without abrupt transition point, consistent with adynamic ileus or partial obstruction. Abdomen X-Ray
[2023-01-30 21:13] VITALS: BP 138/95; PULSE 67; RESP 18; TEMP 36.6; O2SAT 96
[2023-01-30] MEDS: traZODone HCL 50 MG TABLET PO (22:31)
[2023-01-31 04:55] VITALS: BP 121/72; PULSE 65; RESP 16; TEMP 36.5; O2SAT 100
[2023-01-31 06:48] LABS: Hematocrit 44.7 % (42.0-52.0); Hemoglobin 14.8 g/dL (14.0-18.0); Mean Corpuscular HGB Conc 33.1 g/dl (32-36); Mean Corpuscular Hemoglobin 29.5 pg (26-34); Mean Platelet Volume 9.6 fl (7.4-10.4); Platelet Count Result 203 k/mm3 (150-375); Red Blood Count 5.02 M/mm3 (4.6-6.20); White Blood Count 4.5 K/mm3 (4.5-10.0)
[2023-01-31 07:10] LABS: Anion Gap 10 mmol/L (8-16); Blood Urea Nitrogen 8 mg/dL (9-20); Calcium 8.5 mg/dL (8.4-10.2); Carbon Dioxide 26 mmol/L (22-30); Chloride 104 mmol/L (98-107); Estimated CRCL calculation 102 ml/min; Estimated Glomerular Filt Rate > 60; Glucose 107 mg/dL (65-110); Potassium 3.6 mmol/L (3.4-5.0); Sodium 140 mmol/L (137-145)
[2023-01-31] MEDS: ENOXAPARIN 40 MG/0.4 ML SYRINGE SUB-Q (08:23)
--- NOTE | 2023-01-31 10:57 | PM.DS ---
DS: Admitting Diagnosis Discharge Date 01/31/23 Admitting Diagnosis Small bowel obstruction DS: Discharge Diagnosis Discharge Diagnosis (1) Obstruction of small intestine due to peritoneal adhesion: Code(s): K56.50 - Intestinal adhesions [bands], unspecified as to partial versus complete obstruction Status: Acute (2) Spigelian hernia: Code(s): K43.9 - Ventral hernia without obstruction or gangrene Status: Chronic Assessment and Plan: Noted only on CT scan.? No symptoms or complaints regarding this. (3) Ventral hernia without obstruction or gangrene: Code(s): K43.9 - Ventral hernia without obstruction or gangrene Status: Chronic Assessment and Plan: Small supraumbilical ventral hernia containing fat.? No complaints or symptoms regarding this. Not an acute issue at this time but patient is aware. (4) History of congenital diaphragmatic hernia: Code(s): Z87.760 - Personal history of (corrected) congenital diaphragmatic hernia or other congenital diaphragm malformations Status: Chronic (5) Essential (primary) hypertension: Code(s): I10 - Essential (primary) hypertension Status: Chronic Assessment and Plan: BP stable. No acute issues. Continue home medications on discharge. (6) GERD (gastroesophageal reflux disease): Qualifiers: Esophagitis presence: esophagitis presence not specified Qualified Code(s): K21.9 - Gastro-esophageal reflux disease without esophagitis Code(s): K21.9 - Gastro-esophageal reflux disease without esophagitis Status: Chronic Assessment and Plan: No acute issues. Continue home medication. DS: Summary Hospital Course Reason for hospitalization: Patient is a 42-year-old man who has a history of repair of congenital diaphragmatic hernia as a .? He has also had laparoscopic cholecystectomy in 2006 and earlier appendectomy.? Since at least 2001, he has had multiple episodes of recurrent small-bowel obstructions.? He presented to the ER with complaints of abdominal pain and bloating x 3 days, nausea, and vomiting. Workup in the ER showed CT evidence of a dilated small bowel without definitive transition point, suggesting partial small bowel obstruction vs ileus. He was admitted in this setting.? Hospital Course: He was treated conservatively with NG tube decompression, bowel rest, IV fluids, and analgesics. He showed clinical improvement by the following day and had a water-soluble small bowel follow through, which showed dilated small bowel with contrast reaching the colon in 1 hour, consistent with ileus. Bowel function returned following his small bowel series. NG tube was removed and he was slowly advanced to a low residue diet. He continues to improve this morning and is no longer having any abdominal pain, nausea, or vomiting. He is tolerating a low fiber diet. Discussed with Dr. Lawson and patient is stable for discharge today. Status at Discharge Functional status at discharge: independent ambulation Overall status at discharge: patient is back to baseline Time Spent with Patient Time attestation: Total time spent providing and/or coordinating discharge services: Time spent: Less than 30 minutes Exam Const: General: comfortable and no acute distress Orientation/consciousness: patient oriented x3 GI: Inspection: non-distended GI Palp: Yes Soft to palpation, No Tenderness to palpation present (GI), No Guarding due to palpation present (GI) and No Rebound tenderness present Percussion: Yes normal to percussion Auscultation: normal bowel sounds DS: Data Data Completed and Pending Labs on day of discharge: Labs from last 24 hours 01/31/23 06:22 WBC 4.5 RBC 5.02 Hgb 14.8 Hct 44.7 MCV 89.0 MCH 29.5 MCHC 33.1 RDW 13.0 Plt Count 203 MPV 9.6 Sodium 140 Potassium 3.6 Chloride 104 Carbon Dioxide 26 Anion Gap 10 BUN 8 L Creatinine 1.10 Estim Creat Clear Calc 102
== END 2023-01-31 11:59 | disposition home or self-care (01) | DRG 390 ==
LOC: ANHED 05:11 → ANH3MEDSUR 07:16
PROVIDERS: Admitting Provider Surgery; Emergency Provider Emergency Medicine; PCP Family Medicine; Visit Provider Nurse Practitioner Family
DX: K56.50 Intestinal adhesions [bands], unspecified as to partial versus complete obstruction (principal); K43.9 Ventral hernia without obstruction or gangrene; K21.9 Gastro-esophageal reflux disease without esophagitis; I10 Essential (primary) hypertension; Z90.49 Acquired absence of other specified parts of digestive tract; Z87.760 Personal history of (corrected) congenital diaphragmatic hernia or other congenital diaphragm malformations
CPT/HCPCS: 36415; 74018; 74177; 74250; 80048; 80053; 81001; 83605; 83690; 85025; 85027; 96374; 96375; 99285; A9270; J1170; J1650; J2270; J3480; J7120; Q9967

== ENCOUNTER 2023-03-31 15:06 | Outpatient (CLI) | payer OTHER, SELFPAY ==
--- NOTE | ~2023-03-31 | XR_ITS ---
EXAMINATION: XR shoulder LT min 2V DATE: 03/31/2023 15:50 INDICATION: Left shoulder pain. TECHNIQUE: 4 views of left shoulder were obtained. COMPARISON: None. FINDINGS: Bone alignment is normal. No fracture. Joint spaces are normal. IMPRESSION: 1. Normal left shoulder. Reviewed, dictated and finalized at location E. NEHOUSE BRAKEMAN IMPRESSION: 1. Normal left shoulder.
== END 2023-03-31 15:07 ==
PROVIDERS: PCP Family Medicine; Visit Provider Nurse Practitioner Family
DX: M25.512 Pain in left shoulder (principal)
CPT/HCPCS: 73030

== ENCOUNTER 2024-11-01 12:58 | Day surgery (SDC) | payer OTHER, SELFPAY ==
[2024-10-21 11:19] VITALS: BMI 42.8
[2024-11-01 13:19] VITALS: BP 144/93; PULSE 82; RESP 18; TEMP 36.1; O2SAT 98; BMI 42.1
--- NOTE | 2024-11-01 13:20 | WPDANESEPPF ---
Anes - Initial Pre Proc Eval Procedure: Operation Date: 11/01/24 14:30 Proposed Procedures p EGD & Screening Colonoscopy - Reyes Hsieh MD Date/Time: 11/01/24 13:20 Surgeon: Reyes Hsieh MD Pre Op Diagnosis: Mendez's esophagus without dysplasia, GERD Patient Data Age: 43 Gender: M Height: 1.75 m Weight: 131.7 kg Allergies Allergy/AdvReac Type Severity Reaction Status Date / Time lisinopril Allergy Severe Cough Verified 11/01/24 13:18 prochlorperazine (From Allergy Severe Jittery Verified 11/01/24 13:18 Compazine) Home Medications ?Medication ?Instructions ?Recorded ?Confirmed ?Type esomeprazole magnesium 40 mg 40 mg PO DAILY #90 caps 08/21/24 11/01/24 Rx capsule,delayed release (Nexium) losartan 50 mg-hydrochlorothiazide 1 tablet PO DAILY #90 tabs 08/21/24 11/01/24 Rx 12.5 mg tablet valacyclovir 1 gram tablet See Rx Instructions .Route 08/21/24 10/21/24 Rx .COMPLEX #20 tabs Patient hx anesthesia problems: none Family hx anesthesia problems: none Results Review: All pre-operative results and documents have been reviewed as part of the pre-operative evaluation. [facility] Past Medical History Medical History Defect of articular cartilage Medial meniscus tear Left knee pain Hx of migraines Dehydration Adynamic ileus History of small bowel obstruction Resolved with conservative treatment. GERD (gastroesophageal reflux disease) With history of Mendez esophagus. Essential (primary) hypertension Small bowel obstruction due to adhesions Surgical History Surgical History History of tonsillectomy S/P left inguinal herniorrhaphy Status post cholecystectomy 2006. Status post appendectomy History of repaired congenital digestive system anomaly Congenital diaphragmatic hernia Family History Family History Mother Family history of thyroid disease Family history of mental disorder Hypertension Father Hypertension Social History Social History Social History: He is and lives with his , Celia, and ER nurse here at [place], and there 2 children in [place]. 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 He denies alcohol, tobacco, and drug abuse. He is a full code. Smoking status: Never smoker Alcohol intake: current Drinks per week: 2 Alcohol use details: occasional, social Substance use: never Substance use type: does not use Lack of Transportation: No Lack of Food: Never True Current Housing: I Have Housing Concerned About Future Housing: No Difficulty Paying Gas/Electric Bills: No Difficulty Paying for Meds: No Currently Unemployed: No Education: Associate Degree Difficulty w/ Childcare or Family Care: No Living arrangements: with family Spiritual care concerns: No Anes - Eval Final PreProcedure Day of Procedure 11/01/24 13:20 Patient weight: morbidly obese Heart: regular rate and rhythm Lungs: clear to auscultation Airway: Mallampati scale class II Neurological: alert and oriented Last oral intake: >/= 8 hours ASA classification: III Emergent: no Anesthetic plan: proceed Anesthesia type and monitoring: general GIVS and standard monitoring Results Review: All pre-operative results and documents have been reviewed as part of the pre-operative evaluation. Informed Consent: The patient's anesthetic plan and its attendant risks and benefits were discussed with the patient/family/POA. Questions were solicited and answers provided to the satisfaction of the patient/family/POA.
[2024-11-01] MEDS: LACTATED RINGERS 1,000 ML 150 ML IV CONT (13:39)
--- NOTE | 2024-11-01 13:54 | P.HP_ITS ---
History of Present Illness History of Present Illness Consent: Risks, benefits, and alternatives have been discussed and questions answered. Patient agrees to proceed with procedure. 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 GERD (gastroesophageal reflux disease) With history of Powell esophagus. Essential (primary) hypertension Small bowel obstruction due to adhesions Surgical History Surgical History History of tonsillectomy S/P left inguinal herniorrhaphy Status post cholecystectomy 2006. 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 His [facility] care providers Dr. Colunga. He denies alcohol, tobacco, and drug abuse. He is a full code. Smoking status: Never smoker Alcohol intake: current Drinks per week: 2 Alcohol use details: occasional, social Substance use: never Substance use type: does not use Lack of Transportation: No Lack of Food: Never True Current Housing: I Have Housing Concerned About Future Housing: No Difficulty Paying Gas/Electric Bills: No Difficulty Paying for Meds: No Currently Unemployed: No Education: Associate Degree Difficulty w/ Childcare or Family Care: No Living arrangements: with family Spiritual care concerns: No Meds Home Medications and Allergies Home Medications ?Medication ?Instructions ?Recorded ?Confirmed ?Type esomeprazole magnesium 40 mg 40 mg PO DAILY #90 caps 0 08/21/24 11/01/24 Rx capsule,delayed release (Nexium) losartan 50 mg-hydrochlorothiazide 1 tablet PO DAILY # 90 tabs 08/21/24 11/01/24 Rx 12.5 mg tablet valacyclovir 1 gram tablet See Rx Instructions .Route 08/21/24 10/21/24 Rx .COMPLEX #20 tabs Allergies Allergy/AdvReac Type Severity Reaction Status Date / Time lisinopril Allergy Severe Cough Verified 11/01/24 13:18 prochlorperazine (From Allergy Severe Jittery Verified 11/01/24 13:18 Compazine) Vital Signs Vital Signs - 24 hr 11/01/24 13:19 Temperature 97 F L Pulse Rate 82 Respiratory Rate 18 Blood Pressure 144/93 H Pulse Oximetry 98 Oxygen Delivery Room Air Exam Const: General: comfortable and no acute distress HENMT: Face/Nose/Sinus: Normal nares present Eyes: General: appearance normal, both eyes and all related structures Neck: Neck: no JVD Resp: Auscultation: clear to auscultation bilaterally Cardio: Rate: regular rate Rhythm: regular rhythm GI: Inspection: non-distended GI Palp: Yes Soft to palpation Skin: General skin exam: normal color Neuro: General: gait normal Speech: normal speech Extrem: General: normal to inspection Psych: Mental Status: mental status grossly normal
[2024-11-01 14:11] VITALS: BP 93/31; PULSE 70; RESP 18; O2SAT 94
--- NOTE | 2024-11-01 14:11 | P.HP_ITS ---
History of Present Illness History of Present Illness Consent: Risks, benefits, and alternatives have been discussed and questions answered. Patient agrees to proceed with procedure. 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 GERD (gastroesophageal reflux disease) With history of Powell esophagus. Essential (primary) hypertension Small bowel obstruction due to adhesions Surgical History Surgical History History of tonsillectomy S/P left inguinal herniorrhaphy Status post cholecystectomy 2006. 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 He denies alcohol, tobacco, and drug abuse. He is a full code. Smoking status: Never smoker Alcohol intake: current Drinks per week: 2 Alcohol use details: occasional, social Substance use: never Substance use type: does not use Lack of Transportation: No Lack of Food: Never True Current Housing: I Have Housing Concerned About Future Housing: No Difficulty Paying Gas/Electric Bills: No Difficulty Paying for Meds: No Currently Unemployed: No Education: Associate Degree Difficulty w/ Childcare or Family Care: No Living arrangements: with family Spiritual care concerns: No Meds Home Medications and Allergies Home Medications ?Medication ?Instructions ?Recorded ?Confirmed ?Type esomeprazole magnesium 40 mg 40 mg PO DAILY #90 caps 0 08/21/24 11/01/24 Rx capsule,delayed release (Nexium) losartan 50 mg-hydrochlorothiazide 1 tablet PO DAILY # 90 tabs 08/21/24 11/01/24 Rx 12.5 mg tablet valacyclovir 1 gram tablet See Rx Instructions .Route 08/21/24 10/21/24 Rx .COMPLEX #20 tabs Allergies Allergy/AdvReac Type Severity Reaction Status Date / Time lisinopril Allergy Severe Cough Verified 11/01/24 13:18 prochlorperazine (From Allergy Severe Jittery Verified 11/01/24 13:18 Compazine) Vital Signs Vital Signs - 24 hr 11/01/24 13:19 Temperature 97 F L Pulse Rate 82 Respiratory Rate 18 Blood Pressure 144/93 H Pulse Oximetry 98 Oxygen Delivery Room Air Exam Const: General: comfortable and no acute distress HENMT: Face/Nose/Sinus: Normal nares present Eyes: General: appearance normal, both eyes and all related structures Neck: Neck: no JVD Resp: Auscultation: clear to auscultation bilaterally Cardio: Rate: regular rate Rhythm: regular rhythm GI: Inspection: non-distended GI Palp: Yes Soft to palpation Skin: General skin exam: normal color Neuro: Speech: normal speech Extrem: General: normal to inspection Psych: Mental Status: mental status grossly normal Assessment and Plan Assessment and plan (1) Powell's esophagus: Code(s): K22.70 - 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
--- NOTE | 2024-11-01 14:11 | S_PTH ---
PATIENT: Feliciano Nair LOC: [facility]#:[id number] AGE/SX: 43/M ROOM: RE11/01/[address]: Reyes Hsieh MD : 1980 BED: DIS: 11/01/2024 SPEC #: [id number] RECD: 11/05/24 07:41 STATUS: MAHENDRA REQ #: [id number] NATO: 11/01/24 14:[address]: Reyes Hsieh DEPT: [facility] Surgical RECD BY: Lenore Naidu ENTERED: 11/05/24 07:41 SP TYPE: Surgical OTHR DR: Reno Westbrook MD Tissues: A - Esophageal Biopsy Procedures: Hematoxylin and Eosin Stain Gross and Microscopic Level 4
--- NOTE | 2024-11-01 14:12 | SUR.OPER ---
EGD START 1354, END 1358 COLONOSCOPY START 1402, END 1410
[2024-11-01 14:21] VITALS: BP 86/41; PULSE 71; RESP 16; O2SAT 97
[2024-11-01 14:31] VITALS: BP 87/45; PULSE 71; RESP 21; O2SAT 94
[2024-11-01 14:39] VITALS: BP 98/52; PULSE 69; RESP 21; O2SAT 98
[2024-11-01 14:42] VITALS: BP 116/75
== END 2024-11-01 14:48 | disposition home or self-care (01) ==
PROVIDERS: PCP Family Medicine; Referring Provider Nurse Practitioner Family; Visit Provider Internal Medicine Gastroenterology
PROC: 0DJ08ZZ Inspection of Upper Intestinal Tract, Via Natural or Artificial Opening Endoscopic (ICD-10-PCS; CPT 45378; principal; 2024-11-01 14:30)
DX: Z12.11 Encounter for screening for malignant neoplasm of colon (principal); K21.00 Gastro-esophageal reflux disease with esophagitis, without bleeding; K22.70 Barrett's esophagus without dysplasia; K31.7 Polyp of stomach and duodenum; I10 Essential (primary) hypertension; E66.01 Morbid (severe) obesity due to excess calories; Z68.41 Body mass index [BMI] 40.0-44.9, adult; Z98.890 Other specified postprocedural states; Z90.49 Acquired absence of other specified parts of digestive tract
CPT/HCPCS: 43239; 45378; 88305; J2704; J7120

== ENCOUNTER 2024-12-15 13:07 | Emergency (ER) | payer OTHER, SELFPAY ==
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
--- OUTSIDE RECORDS SUMMARY | 2024-12-15 13:09 | XMS_ITS ---
Author Organization Unknown ENCOUNTERS Encounter Performer Location Date Diagnosis Diagnosis Status Pre Admit [facility] [address] [place] [address] [id number] [facility] [address] [place] [address] [id number] LELIA Inpatient Debora [facility] [address] [place] [address] [id number] LELIA Emergency [facility] [address] [place] [address] [id number] PAT Pre Admit [facility] [address] [place] [address] [id number] Emergency [facility] [address] [place] [address] [id number] LELIA Outpatient [facility] [address] [place] [address] [id number] LELIA Outpatient [facility] [address] [place] [address] [id number] LELIA Outpatient [facility] [address] [place] [address] [id number] LELIA Outpatient [facility] [address] [place] [address] [id number] L[facility] [address] [place] [address] [id number] LELIA *Note: Encounters from your own facility or health system may be excluded. Allergies, Adverse Reactions, Alerts Allergen Type Severity Identification Date lisinopril drug allergy 3 [id number] prochlorperazine drug allergy 2 [id number] Medications Name Date Quantity Days Supplied GPI Number
[2024-12-15 13:10] VITALS: BP 148/72; PULSE 84; RESP 18; TEMP 37.1; O2SAT 100
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
[2024-12-15 15:10] VITALS: BP 130/88; PULSE 82; RESP 16; O2SAT 99
== END 2024-12-15 15:53 | disposition home or self-care (01) ==
PROVIDERS: Emergency Provider Emergency Medicine; PCP Family Medicine
DX: M25.512 Pain in left shoulder (principal); K21.9 Gastro-esophageal reflux disease without esophagitis; I10 Essential (primary) hypertension; V18.0XXA Pedal cycle driver injured in noncollision transport accident in nontraffic accident, initial encounter
CPT/HCPCS: 71101; 73000; 73030; 99284

== ENCOUNTER 2024-12-21 17:07 | Inpatient (IN) | payer OTHER, SELFPAY ==
--- NOTE | ~2024-12-21 | XR_ITS ---
EXAMINATION: XR abdomen gastric tube insert, 12/21/2024 19:25 CDT HISTORY: ng insertion COMPARISON: No comparisons available. Technique: 3 view. Findings: There are dilated loops of small bowel the largest 3.5 cm consistent with small bowel obstruction. No free air. No abnormal calcifications No acute osseous abnormality. Nasogastric tube terminates in the mid stomach. Impression: 1. Nasogastric tube in appropriate location Reviewed, dictated and finalized at location P. Impression: 1. Nasogastric tube in appropriate location
--- NOTE | ~2024-12-21 | CT_ITS ---
Feliciano Nair EXAMINATION: CT abdomen pelvis w con COMPARISON: None HISTORY: Concern for small bowel obstruction TECHNIQUE: Axial images were obtained through the abdomen, pelvis post administration of IV contrast. Oral contrast was also administered. Coronal reconstruction images were obtained from the axial views. CT scan performed using dose optimization techniques including the following automated exposure control; adjustment of mA and/or kV; use of iterative reconstruction technique. Automatic exposure control was used to reduce radiation dose. Permanent radiation dose record is archived to PACS. FINDINGS: CT abdomen: LUNG BASES: There is elevation left hemidiaphragm with defect in the diaphragm through which a large amount of intra-abdominal fat protrudes with sequelae of previous injury or insult noted, clinical correlation is required. LIVER: Moderate hepatic steatosis. Portal vein patent. No intrahepatic biliary duct dilatation. SPLEEN: Unremarkable. KIDNEYS: Right Kidney: Right kidney subcentimeter probable renal cysts. Left Kidney: Unremarkable. No calculi. No hydronephrosis ADRENAL GLANDS: Unremarkable. PANCREAS: Mild pancreatic atrophy. GALLBLADDER/BILIARY: Postcholecystectomy. STOMACH AND ESOPHAGUS: Visualized stomach and esophagus within normal limits. BOWEL/MESENTERY: There are multiple fluid-filled loops of small and large bowel. There are multiple fluid-filled loops of small bowel which appears slightly thickened. The appendix is not identified however there is no inflammation surrounding the cecum. There are some minimally dilated loops of small bowel the largest measuring 3.5 cm. This stranding is noted within the mesentery. ADENOPATHY/RETROPERITONEUM: No lymphadenopathy. AORTA/VASCULATURE: Normal caliber aorta. FREE FLUID OR FREE AIR: None. CT pelvis: SOLID ORGANS/REPRODUCTIVE: Unremarkable. BLADDER: Within normal limits. OSSEOUS STRUCTURES: No acute osseous abnormality.No suspicious lesions. OVERLYING SOFT TISSUES: Unremarkable. IMPRESSION: Probable enterocolitis, superimposed small bowel obstruction is suspected. Follow-up recommended to assess. Reviewed, dictated and finalized at location P. IMPRESSION: Probable enterocolitis, superimposed small bowel obstruction is suspected. Foll ow-up recommended to assess.
[2024-12-21 17:18] VITALS: BP 155/98; PULSE 93; RESP 14; TEMP 36.7; O2SAT 96
[2024-12-21] MEDS: LACTATED RINGERS 1,000 ML 999 ML IV CONT ×2 (17:29→23:04)
[2024-12-21] MEDS: ONDANSETRON INJ 4 MG/2 ML VIAL IV PUSH (17:30)
[2024-12-21] MEDS: HYDROmorphone HCL INJ (*CRX) 1 MG/ML SYR IV PUSH ×2 (17:30→19:33)
[2024-12-21 17:46] LABS: Hematocrit 51.4 % (42.0-52.0); Hemoglobin 17.7 g/dL (14.0-18.0); Immature Granulocyte Percent A 0.4 % (0-0.5); Lymphocytes Absolute Auto 1.15 K/mm3 (0.9-3.2); Mean Corpuscular HGB Conc 34.4 g/dl (32-36); Mean Corpuscular Hemoglobin 29.2 pg (26-34); Mean Corpuscular Volume 84.7 fl (80-100); Nucleated Red Blood Cells Absolute Auto 0.000 K/mm3 (0.0-0.012); Nucleated Red Blood Cells Perc 0.0 % (0.0-0.2); Platelet Count Result 241 k/mm3 (150-375); Red Blood Count 6.07 M/mm3 (4.6-6.20); White Blood Count 7.9 K/mm3 (4.5-10.0)
--- OUTSIDE RECORDS SUMMARY | 2024-12-21 17:47 | XMS_ITS ---
Author Organization Unknown ENCOUNTERS Encounter Performer Location Date Diagnosis Diagnosis Status Pre Admit [facility] [address] [place] [address] [id number] Emergency [facility] [address] [place] [address] [id number] Emergency [facility] [address] [place] [address] [id number] LELIA Pre Admit [facility] [address] [place] [address] [id number] Outpatient Reyes [facility] [address] [place] [address] [id number] LELIA Inpatient Debora [facility] [address] [place] [address] [id number] LELIA Emergency [facility] [address] [place] [address] [id number] PAT Pre Admit [facility] [address] [place] [address] [id number] Emergency [facility] [address] [place] [address] [id number] LELIA Outpatient [facility] [address] [place] [id number] [facility] [address] [place] [id number] [facility] [address] [place] [address] [id number] LELIA Outpatient [facility] [address] [place] [address] [id number] LELIA Outpatient Patrice [facility] [address] [place] [address] [id number] LELIA *Note: Encounters from your own facility or health system may be excluded. Allergies, Adverse Reactions, Alerts Allergen Type Severity Identification Date lisinopril drug allergy 3 [id number] prochlorperazine drug allergy 2 [id number] Medications Name Date Quantity Days Supplied GPI Number
[2024-12-21 17:51] LABS: Estimated CRCL calculation 85 ml/min; Estimated Glomerular Filt Rate 59
[2024-12-21 17:54] LABS: Alanine Aminotransferase 58 U/L (6-50); Albumin Level 4.6 g/dL (3.5-5.1); Alkaline Phosphatase 60 U/L (38-126); Anion Gap 12 mmol/L (4-12); Aspartate Amino Transferase 36 U/L (17-59); Bilirubin,Total 0.6 mg/dL (0.2-1.3); Blood Urea Nitrogen 12 mg/dL (9-20); Calcium 9.3 mg/dL (8.4-10.2); Carbon Dioxide 21 mmol/L (22-30); Chloride 105 mmol/L (98-107); Estimated CRCL calculation 87 ml/min; Estimated Glomerular Filt Rate > 60; Glucose 109 mg/dL (65-110); Potassium 3.8 mmol/L (3.4-5.0); Sodium 138 mmol/L (137-145); Total Protein 8.6 g/dL (6.3-8.2)
[2024-12-21 18:00] LABS: INR 1.0; Prothrombin Time 13.4 Seconds (11.1-14.7)
[2024-12-21 18:01] LABS: Partial Thromboplastin Time 23.2 Seconds (22.3-36.8)
[2024-12-21 18:21] LABS: Influenza A QL RT-PCR Negative (Negative); Influenza B QL RT-PCR Negative (Negative); RSV RNA, RT-PCR Negative (Negative); SARS-CoV-2 RNA PCR Negative (Negative)
--- NOTE | 2024-12-21 18:55 | ED.GENADULT ---
HPI - General Adult General Chief complaint: Abdominal Pain Stated complaint: sbo? Time Seen by Provider: 12/21/24 17:09 History of Present Illness HPI narrative: 44-year-old male presents emergency department for evaluation for concern for small bowel obstruction. Patient does have significant history of bowel obstructions secondary to adhesions from hernia repairs as a child. Patient typically does feel improved after having NG tube placement. Patient's most recent bowel obstruction was approximately 2 years ago. Patient states over the last 2 days he has had worsening symptoms including nausea vomiting and has had some diarrhea stool. Patient does state that sometimes his episodes of enterocolitis do feel similar to bowel obstructions. Related Data Allergies Allergy/AdvReac Type Severity Reaction Status Date / Time lisinopril Allergy Severe Cough Verified 12/21/24 17:13 prochlorperazine (From Allergy Severe Jittery Verified 12/21/24 17:13 Compazine) Review of Systems Review of Systems: All systems reviewed & are unremarkable except as noted in HPI and below PMFSH Past Medical History Medical History (Updated 12/21/24 @ 19:00 by Obed Briscoe MD) Colon cancer screening Defect of articular cartilage Medial meniscus tear Left knee pain Hx of migraines Dehydration Adynamic ileus History of small bowel obstruction Resolved with conservative treatment. GERD (gastroesophageal reflux disease) With history of Mendez esophagus. Essential (primary) hypertension Small bowel obstruction due to adhesions Surgical History Surgical History History of tonsillectomy S/P left inguinal herniorrhaphy Status post cholecystectomy 2006. 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 He denies alcohol, tobacco, and drug abuse. He is a full code. Smoking status: Never smoker Alcohol intake: current Drinks per week: 2 Alcohol use details: occasional, social Substance use: never Substance use type: does not use Lack of Transportation: No Lack of Food: Never True Current Housing: I Have Housing Concerned About Future Housing: No Difficulty Paying Gas/Electric Bills: No Difficulty Paying for Meds: No Currently Unemployed: No Education: Associate Degree Difficulty w/ Childcare or Family Care: No Living arrangements: with family Spiritual care concerns: No Exam Narrative: APPEARANCE: Well appearing, no pain, no distress, well-nourished. HEAD: normocephalic, atraumatic. EYES: PERRLA/EOMI, conjunctivae clear. NOSE: Normal no drainage EARS:TMS clear with good light reflex. THROAT: Pharynx clear, no exudate. NECK: Supple. No adenopathy, no masses. RESPIRATORY: Airway patent, respirations nonlabored. Clear to auscultation bilaterally, no rales, rhonchi, wheezing. CARDIOVASCULAR: Regular rate and rhythm without murmurs rubs or gallops. ABDOMINAL: Decreased bowel sounds, lower abdominal tenderness to palpation MUSCULOSKELETAL: Moves all extremities. Strength/ROM intact, No edema, No calf tenderness. NEURO: Alert. Cranial nerves II through XII intact. Grossly intact SKIN: Warm, dry. Normal Color Course Vital Signs Vital signs: Vital Signs Temperature 98.0 F 12/21/24 17:18 Pulse Rate 93 12/21/24 17:18 Respiratory Rate 14 12/21/24 17:18 Blood Pressure 155/98 H 12/21/24 17:18 Pulse Oximetry 96 12/21/24 17:18 Temperature 98.0 F 12/21/24 17:18 Pulse Rate 93 12/21/24 17:18 Respiratory Rate 14 12/21/24 17:18 Blood Pressure 155/98 H 12/21/24 17:18 Pulse Oximetry 96 12/21/24 17:18 Medical Decision Making [facility] Narrative Medical decision making narrative: 44-year-old male presents emergency department for evaluation for concern for small bowel obstruction. Patient is currently afebrile with no leukocytosis hemoglobin of 17.7. Patient has a normal lactic acid with no other acute abnormalities on his CMP patient was negative for influenza RSV and for COVID. CT scan does show possible enterocolitis with suspected small bowel obstruction. Case was discussed with surgery and they are willing to see the patient as consult. Patient does prefer to have a g tube. Case discussed with hospitalist patient was accepted for admission. And re-evaluation patient did feel improved after IV fluids and IV pain medications and antiemetics. Patient family were updated on the results of the workup and plan for admission. All questions concerns were addressed. Differential Diagnosis Differential Diagnosis: Colitis, diverticulitis, appendicitis, small-bowel obstruction, gastroparesis, enterocolitis Vital Signs Vital Signs: Vital Signs Temperature 98.0 F 12/21/24 17:18 Pulse Rate 93 12/21/24 17:18 Respiratory Rate 14 12/21/24 17:18 Blood Pressure 155/98 H 12/21/24 17:18 Pulse Oximetry 96 12/21/24 17:18 Temperature 98.0 F 12/21/24 17:18 Pulse Rate 93 12/21/24 17:18 Respiratory Rate 14 12/21/24 17:18 Blood Pressure 155/98 H 12/21/24 17:18 Pulse Oximetry 96 12/21/24 17:18 Lab Data Lab results reviewed: Yes I reviewed the patient's lab results. 12/21/24 17:35 12/21/24 17:50 Labs: Lab Results 12/21/24 12/21/24 Range/Units 17:35 17:50 WBC 7.9 (4.5-10.0) K/mm3 RBC 6.07 (4.6-6.20) M/mm3 Hgb 17.7 (14.0-18.0) g/dL Hct 51.4 (42.0-52.0) % MCV 84.7 (80-100) fl MCH 29.2 (26-34) pg MCHC 34.4 (32-36) g/dl RDW 12.9 (11.5-14.5) % Plt Count 241 (150-375) k/mm3 MPV 9.4 (7.4-10.4) fl Immature Gran % (Auto) 0.4 (0-0.5) % Neut % (Auto) 75.0 H (45.5-73.1) % Lymph % (Auto) 14.5 L (18.3-44.2) % [place] % (Auto) 8.3 (2.6-8.5) % Eos % (Auto) 1.4 (0-4.4) % Baso % (Auto) 0.4 (0.2-1.2) % Lymph # (Auto) 1.15 (0.9-3.2) K/mm3 [place] # (Auto) 0.7 H (0.1-0.6) K/mm3 Eos # (Auto) 0.1 (0-0.3) K/mm3 Baso # (Auto) 0.0 (0.0-0.1) K/mm3 Abs Immat Gran (auto) 0.03 (0.00-0.031) K/mm3 Absolute Neuts (auto) 6.0 (1.3-6.7) K/mm3 Absolute Nucleated RBC 0.000 (0.0-0.012) K/mm3 Nucleated RBC % 0.0 (0.0-0.2) % PT 13.4 (11.1-14.7) Seconds INR 1.0 APTT 23.2 (22.3-36.8) Seconds Sodium 138 (137-145) mmol/L Potassium 3.8 (3.4-5.0) mmol/L Chloride 105 (98-107) mmol/L Carbon Dioxide 21 L (22-30) mmol/L Anion Gap 12 (4-12) mmol/L BUN 12 (9-20) mg/dL Creatinine 1.27 1.30 (0.7-1.3) mg/dL Estim Creat Clear Calc 87 85 ml/min Estimated GFR > 60 59 (59 - ) Glucose 109 (65-110) mg/dL Lactic Acid 1.0 (0.7-2.0) mmol/L Calcium 9.3 (8.4-10.2) mg/dL Total Bilirubin 0.6 (0.2-1.3) mg/dL AST 36 (17-59) U/L ALT 58 H (6-50) U/L Alkaline Phosphatase 60 (38-126) U/L Total Protein 8.6 H (6.3-8.2) g/dL Albumin 4.6 (3.5-5.1) g/dL Influenza A (RT-PCR) Negative (Negative) Influenza B (RT-PCR) Negative (Negative) RSV (RT-PCR) Negative (Negative) SARS-CoV-2 RNA (RT-PCR) Negative (Negative) Imaging Data Radiologist's impression: Impressions Abdomen/Pelvis CT 12/21/24 18:14 IMPRESSION: Probable enterocolitis, superimposed small bowel obstruction is suspected. Follow-up recommended to assess. Discharge Plan Discharge Clinical Impression: Small bowel obstruction Patient Disposition: Still a Patient Condition: Stable Instructions: Antibiotic Form Patient Language: Kyrgyz Prescriptions: No Action esomeprazole magnesium [Nexium] 40 mg capsule,delayed release(DR/EC) 40 mg PO DAILY Qty: 90 3RF losartan-hydrochlorothiazide 50-12.5 mg tablet 1 tablet PO DAILY Qty: 90 3RF valacyclovir 1 gram tablet See Rx Instructions .ROUTE .COMPLEX Qty: 20 3RF Dose Instruction: TAKE 2 TABLETS BY MOUTH EVERY 12 HOURS NEEDED Rx Instructions: TAKE 2 TABLETS BY MOUTH EVERY 12 HOURS NEEDED ibuprofen 800 mg tablet 800 mg PO TID PRN (Reason: pain) 7 Days Qty: 21 0RF acetaminophen 500 mg tablet 1,000 mg PO TID PRN (Reason: louise) 7 Days Qty: 42 0RF methocarbamol 750 mg tablet 1,500 mg PO TID Qty: 60 0RF Follow-up/Referrals: Reno Westbrook MD [Primary Care Provider, Family Practice]
--- NOTE | 2024-12-21 19:37 | P.HP_ITS ---
H&P: HPI History of Present Illness Date/Time: 12/21/24 19:37 Chief Complaint: Abdominal pain Narrative: 44-year-old male with history of hypertension, abdominal surgeries and small bowel obstructions presents the hospital with abdominal pain he believes that he has a small-bowel obstruction. He is requesting NG tube. He states that his nausea vomiting. He states that he was still able to have a bowel movement however they were small. Patient states that his pain is much better now that he is NG tube in place. He states that he has gone a lot out of it. He complains of low urine output. He feels that he is still dehydrated. Denies fevers chills shortness of breath. CBC within normal limits, BMP within normal limits, AST 58, influenza A/B, RSV, COVID negative. CT abdomen pelvis show Probable enterocolitis, superimposed small bowel obstruction is suspected. Surgery is consulted. Review of Systems Review of Systems: 12 systems were reviewed and are negativ e except for as per HPI. [facility] Past Medical History Medical History (Updated 12/21/24 @ 19:41 by Mine Robertson, OLIVING MACHINE OPERATOR) Colon cancer screening Defect of articular cartilage Medial meniscus tear Left knee pain Hx of migraines Dehydration Adynamic ileus History of small bowel obstruction Resolved with conservative treatment. GERD (gastroesophageal reflux disease) With history of Mendez esophagus. Essential (primary) hypertension Small bowel obstruction due to adhesions Surgical History Surgical History History of tonsillectomy S/P left inguinal herniorrhaphy Status post cholecystectomy 2006. 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 He denies alcohol, tobacco, and drug abuse. He is a full code. Smoking status: Never smoker Alcohol intake: current Drinks per week: 2 Alcohol use details: occasional, social Substance use: never Substance use type: does not use Lack of Transportation: No Lack of Food: Never True Current Housing: I Have Housing Concerned About Future Housing: No Difficulty Paying Gas/Electric Bills: No Difficulty Paying for Meds: No Currently Unemployed: No Education: Associate Degree Difficulty w/ Childcare or Family Care: No Living arrangements: with family Spiritual care concerns: No Meds Home Medications and Allergies Home Medications ?Medication ?Instructions ?Recorded ?Confirmed ?Type esomeprazole magnesium 40 mg 40 mg PO DAILY #90 caps 0 08/21/24 12/21/24 Rx capsule,delayed release (Nexium) losartan 50 mg-hydrochlorothiazide 1 tablet PO DAILY # 90 tabs 08/21/24 12/21/24 Rx 12.5 mg tablet acetaminophen 500 mg tablet 1,000 mg (2 x 500 mg) PO T ID PRN 12/15/24 12/21/24 Rx louise 7 days #42 tabs ibuprofen 800 mg tablet 800 mg PO TID PRN pain 7 day s #21 12/15/24 12/21/24 Rx tabs esomeprazole magnesium 20 mg 20 mg PO DAILY 12/21/24 1 History capsule,delayed release (Nexium 24HR) Allergies Allergy/AdvReac Type Severity Reaction Status Date / Time lisinopril Allergy Severe Cough Verified 12/21/24 17:13 prochlorperazine (From Allergy Severe Jittery Verified 12/21/24 17:13 Compazine) Vital Signs Vital Signs - 24 hr 12/21/24 17:18 Temperature 98.0 F Pulse Rate 93 Respiratory Rate 14 Blood Pressure 155/98 H Pulse Oximetry 96 Exam Narrative: General: well appearing, appears stated age. HEENT: normocephalic, atraumatic. Mucous membranes moist. EOMI, PERRLA, bilateral sclera anicteric, no conjunctival injection. Neck supple without JVD, lymphadenopathy, or bruit. NG Respiratory: clear to ascultation bilaterally. No rales/rhonic/wheezes. Cardiovascular: Regular rate and rhythm, normal S1-S2 upon ascultation. No murmurs, rubs, or clicks. PMI is nondisplaced, capillary refill less than 3 second. Abdomen: Soft, round, no pulsatile masses, nondistended and nontender. No rebound, no guarding. No CVA tenderness, no hepatosplenomegaly. Bowel sounds present to all four quadrants. No high pitch or tinkling sounds, resonant to percussion. Extremities: No cyanosis, clubbing, or edema present. Pulses are palpable 2/2. Active ROM to all four extremities. Neuro: Alert and orientated x 4. PERRLA. Cranial nerves 2-12 intact without focal deficit. Skin: Warm, dry, and intact, without rash, erythema, or lesion. Psych: pleasant, cooperative, normal speech, normal affect, no hallucinations, no dysarthia H&P: Results Labs Labs: Short CBC 12/21/24 Range/Units 17:35 WBC 7.9 (4.5-10.0) K/mm3 Hgb 17.7 (14.0-18.0) g/dL Hct 51.4 (42.0-52.0) % Plt Count 241 (150-375) k/mm3 BMP 12/21/24 12/21/24 17:35 17:50 Sodium 138 Potassium 3.8 Chloride 105 Carbon Dioxide 21 L BUN 12 Creatinine 1.27 1.30 Glucose 109 Calcium 9.3 Liver Function 12/21/24 Range/Units 17:35 Total Bilirubin 0.6 (0.2-1.3) mg/dL AST 36 (17-59) U/L ALT 58 H (6-50) U/L Alkaline Phosphatase 60 (38-126) U/L Albumin 4.6 (3.5-5.1) g/dL Assessment and Plan Assessment and plan (1) Small bowel obstruction: Code(s): K56.609 - Unspecified intestinal obstruction, unspecified as to partial versus complete obstruction Status: Acute Assessment and Plan: Surgery consulted NPO IVF Waiting for return of bowel function Okay to clamp NG tube for walks (2) Enterocolitis: Code(s): K52.9 - Noninfective gastroenteritis and colitis, unspecified Status: Acute Assessment and Plan: Likely viral (3) Essential (primary) hypertension: Code(s): I10 - Essential (primary) hypertension Status: Chronic Assessment and Plan: P.r.n. hydralazine until patient intake p.o. Quality VTE Prophylaxis VTE prophylaxis: mechanical ordered and pharmacologic ordered Hospitalist MIPS Advance Care Plan I have confirmed that the patient's Advanced Care Plan is present, code status is documented, or surrogate decision maker is listed in patient medical record.: Yes Medication Reconciliation I have utilized all available resources to obtain, update and review the patients current medications (includes all prescriptions, OTC, herbals, cannabis, and nutritional supplements).: Yes
[2024-12-21 19:44] VITALS: BP 150/86; PULSE 87; RESP 16; O2SAT 100
[2024-12-21 20:03] VITALS: BMI 42.3
[2024-12-21 20:10] VITALS: BP 168/96; PULSE 75; RESP 18; TEMP 36.8; O2SAT 94
[2024-12-21] MEDS: LACTATED RINGERS 1,000 ML 125 ML IV CONT (21:22)
[2024-12-21] MEDS: KETOROLAC 15 MG/ML VIAL (*BKC) IV PUSH (21:22)
--- NOTE | 2024-12-21 23:18 | ADMGEN ---
This patient, Feliciano Nair, was admitted to [facility] Surg Room 327-01 at 1999, Patient/family oriented to hospital policies and general routines including ID bracelet, bed and alarms, visiting hours, pain management, procedures, bathroom and other care routines, personal items, smoking policy, room service/diet, and visiting hours. Information on how to activate the Rapid Response Team has been discussed. Patient/Family are encouraged to report perceived risks to care and to ask questions if they do not understand what they are told or what they should do.
[2024-12-22] MEDS: LACTATED RINGERS 1,000 ML 125 ML IV CONT ×3 (03:41→20:20)
[2024-12-22] MEDS: KETOROLAC 15 MG/ML VIAL (*BKC) IV PUSH ×4 (04:30→23:03)
[2024-12-22 04:57] VITALS: BP 142/74; PULSE 65; RESP 16; TEMP 36.2; O2SAT 97
[2024-12-22 06:17] LABS: Hematocrit 45.6 % (42.0-52.0); Hemoglobin 15.3 g/dL (14.0-18.0); Immature Granulocyte Percent A 0.2 % (0-0.5); Lymphocytes Absolute Auto 0.85 K/mm3 (0.9-3.2); Mean Corpuscular HGB Conc 33.6 g/dl (32-36); Mean Corpuscular Hemoglobin 29.1 pg (26-34); Mean Corpuscular Volume 86.7 fl (80-100); Nucleated Red Blood Cells Absolute Auto 0.000 K/mm3 (0.0-0.012); Nucleated Red Blood Cells Perc 0.0 % (0.0-0.2); Platelet Count Result 188 k/mm3 (150-375); Red Blood Count 5.26 M/mm3 (4.6-6.20); White Blood Count 4.2 K/mm3 (4.5-10.0)
[2024-12-22 06:30] LABS: Anion Gap 6 mmol/L (4-12); Blood Urea Nitrogen 13 mg/dL (9-20); Calcium 8.0 mg/dL (8.4-10.2); Carbon Dioxide 25 mmol/L (22-30); Chloride 105 mmol/L (98-107); Estimated CRCL calculation 90 ml/min; Estimated Glomerular Filt Rate > 60; Glucose 105 mg/dL (65-110); Potassium 3.7 mmol/L (3.4-5.0); Sodium 136 mmol/L (137-145)
[2024-12-22] MEDS: ENOXAPARIN 40 MG/0.4 ML SYRINGE SUB-Q (08:59)
--- NOTE | 2024-12-22 09:45 | P.CONGS_ITS ---
Assessment and Plan Assessment and plan (1) Small bowel obstruction: Code(s): K56.609 - Unspecified intestinal obstruction, unspecified as to partial versus complete obstruction Status: Acute Assessment and Plan: Exam is completely benign this morning, will clamp NG tube and hopefully remove later today, okay to have sips and ice chips wall NG is clamped, will start clears his NG out (2) Enterocolitis: Code(s): K52.9 - Noninfective gastroenteritis and colitis, unspecified Status: Acute Assessment and Plan: continue supportive care History of Present Illness Consult details Consult date: 12/22/24 Reason for consult: abdominal pain Requesting physician: Obed Briscoe MD Narrative: The patient is a 44-year-old male presenting to the emergency department complaining of crampy abdominal pain, nausea and vomiting, diarrhea. Of note, the patient had multiple abdominal surgeries as a child and has subsequently had multiple small-bowel obstructions. He reports this episode is similar to his previous episodes of small-bowel obstruction. He does state that the diarrhea is not normal with these episodes. He reports that this has been going on for the last few days. He reports decreased appetite and increased weakness and fatigue. Workup in the emergency department, including imaging, is suggestive of enterocolitis and early small-bowel obstruction. Review of Systems 2 Review of Systems: All systems reviewed & are unremarkable except as noted in HPI and below PMFSH Past Medical History Medical History Colon cancer screening Defect of articular cartilage Medial meniscus tear Left knee pain Hx of migraines Dehydration Adynamic ileus History of small bowel obstruction Resolved with conservative treatment. GERD (gastroesophageal reflux disease) With history of Mendez esophagus. Essential (primary) hypertension Small bowel obstruction due to adhesions Surgical History Surgical History History of tonsillectomy S/P left inguinal herniorrhaphy Status post cholecystectomy 2006. 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 He denies alcohol, tobacco, and drug abuse. He is a full code. Smoking status: Never smoker Alcohol intake: current Drinks per week: 1 Alcohol use details: occasional, social Substance use: never Substance use type: does not use Lack of Transportation: No Lack of Food: Never True Current Housing: I Have Housing Concerned About Future Housing: No Difficulty Paying Gas/Electric Bills: No Difficulty Paying for Meds: No Currently Unemployed: No Education: Associate Degree Difficulty w/ Childcare or Family Care: No Living arrangements: with family Spiritual care concerns: No Meds Home Medications and Allergies Home Medications ?Medication ?Instructions ?Recorded ?Confirmed ?Type esomeprazole magnesium 40 mg 40 mg PO DAILY #90 caps 0 08/21/24 12/21/24 Rx capsule,delayed release (Nexium) losartan 50 mg-hydrochlorothiazide 1 tablet PO DAILY # 90 tabs 08/21/24 12/21/24 Rx 12.5 mg tablet acetaminophen 500 mg tablet 1,000 mg (2 x 500 mg) PO T ID PRN 12/15/24 12/21/24 Rx louise 7 days #42 tabs ibuprofen 800 mg tablet 800 mg PO TID PRN pain 7 day s #21 12/15/24 12/21/24 Rx tabs esomeprazole magnesium 20 mg 20 mg PO DAILY 12/21/24 1 History capsule,delayed release (Nexium 24HR) Allergies Allergy/AdvReac Type Severity Reaction Status Date / Time lisinopril Allergy Severe Cough Verified 12/21/24 23:22 prochlorperazine (From Allergy Severe Jittery Verified 12/21/24 23:22 Compazine) Vital Signs Vital Signs - 24 hr 12/21/24 17:18 12/21/24 19:44 12/21/24 20:10 Temperature 36.7 C 36.8 C Pulse Rate 93 87 75 Respiratory Rate 14 16 18 Blood Pressure 155/98 H 150/86 H 168/96 H Pulse Oximetry 96 100 94 12/22/24 04:57 Temperature 36.2 C L Pulse Rate 65 Respiratory Rate 16 Blood Pressure 142/74 H Pulse Oximetry 97 Exam 2 Const: General: cooperative, comfortable and no acute distress HENMT: Head: normal to inspection, normocephalic and atraumatic Eyes: General: appearance normal, both eyes and all related structures Neck: Neck: normal visual inspection, full ROM and no lymphadenopathy Resp: Auscultation: clear to auscultation bilaterally Cardio: Rate: regular rate Rhythm: regular rhythm GI: Inspection: normal to inspection and non-distended GI Palp: No abdominal tenderness and Yes Soft to palpation Skin: General skin exam: normal color and no rashes or lesions noted Neuro: General: patient oriented x3 and CN's II-XI intact bilaterally Extrem: General: normal to inspection and full ROM Results Labs 12/22/24 05:46 12/22/24 05:46 Labs: Abnormal lab results 12/21/24 12/22/24 Range/Units 17:35 05:46 WBC 4.2 L (4.5-10.0) K/mm3 Neut % (Auto) 75.0 H (45.5-73.1) % Lymph % (Auto) 14.5 L (18.3-44.2) % [place] % (Auto) 16.3 H (2.6-8.5) % Lymph # (Auto) 0.85 L (0.9-3.2) K/mm3 [place] # (Auto) 0.7 H 0.7 H (0.1-0.6) K/mm3 Sodium 136 L (137-145) mmol/L Carbon Dioxide 21 L (22-30) mmol/L Calcium 8.0 L (8.4-10.2) mg/dL ALT 58 H (6-50) U/L Total Protein 8.6 H (6.3-8.2) g/dL Diabetes panel 12/21/24 12/21/24 12/22/24 Range/Units 17:35 17:50 05:46 Sodium 138 136 L (137-145) mmol/L Potassium 3.8 3.7 (3.4-5.0) mmol/L Chloride 105 105 (98-107) mmol/L Carbon Dioxide 21 L 25 (22-30) mmol/L BUN 12 13 (9-20) mg/dL Creatinine 1.27 1.30 1.22 (0.7-1.3) mg/dL Glucose 109 105 (65-110) mg/dL Calcium 9.3 8.0 L (8.4-10.2) mg/dL AST 36 (17-59) U/L ALT 58 H (6-50) U/L Alkaline Phosphatase 60 (38-126) U/L Total Protein 8.6 H (6.3-8.2) g/dL Albumin 4.6 (3.5-5.1) g/dL Calcium panel 12/21/24 12/22/24 Range/Units 17:35 05:46 Calcium 9.3 8.0 L (8.4-10.2) mg/dL Albumin 4.6 (3.5-5.1) g/dL Pituitary panel 12/21/24 12/21/24 12/22/24 Range/Units 17:35 17:50 05:46 Sodium 138 136 L (137-145) mmol/L Potassium 3.8 3.7 (3.4-5.0) mmol/L Chloride 105 105 (98-107) mmol/L Carbon Dioxide 21 L 25 (22-30) mmol/L BUN 12 13 (9-20) mg/dL Creatinine 1.27 1.30 1.22 (0.7-1.3) mg/dL Glucose 109 105 (65-110) mg/dL Calcium 9.3 8.0 L (8.4-10.2) mg/dL Adrenal panel 12/21/24 12/21/24 12/22/24 Range/Units 17:35 17:50 05:46 Sodium 138 136 L (137-145) mmol/L Potassium 3.8 3.7 (3.4-5.0) mmol/L Chloride 105 105 (98-107) mmol/L Carbon Dioxide 21 L 25 (22-30) mmol/L BUN 12 13 (9-20) mg/dL Creatinine 1.27 1.30 1.22 (0.7-1.3) mg/dL Glucose 109 105 (65-110) mg/dL Calcium 9.3 8.0 L (8.4-10.2) mg/dL Total Bilirubin 0.6 (0.2-1.3) mg/dL AST 36 (17-59) U/L ALT 58 H (6-50) U/L Alkaline Phosphatase 60 (38-126) U/L Total Protein 8.6 H (6.3-8.2) g/dL Albumin 4.6 (3.5-5.1) g/dL All other labs normal. Imaging Abdomen CT scan report/results: report reviewed and image reviewed
--- NOTE | 2024-12-22 10:02 | P.PNIM_ITS ---
Progress Note: A&P Assessment and Plan (1) Small bowel obstruction: Code(s): K56.609 - Unspecified intestinal obstruction, unspecified as to partial versus complete obstruction Status: Acute Assessment and Plan: Surgery consulted NPO IVF Waiting for return of bowel function Okay to clamp NG tube for walks 12/22: Per surg consult this AM: Exam is completely benign this morning, will clamp NG tube and hopefully remove later today, okay to have sips and ice chips wall NG is clamped, will start clears his NG out (2) Enterocolitis: Code(s): K52.9 - Noninfective gastroenteritis and colitis, unspecified Status: Acute Assessment and Plan: Likely viral (3) Essential (primary) hypertension: Code(s): I10 - Essential (primary) hypertension Status: Chronic Assessment and Plan: P.r.n. hydralazine until patient intake p.o. 12/22: 142/74 -Will restart pt losartan/hctz once non-NPO status Plan Pending PO intake tolerance and sx management. NG to stay in place pending GI recs. Time Spent With Patient Time: 30 Subjective Date/time seen: 12/22/24 1214 Interval history: Pt resting comfortably in bed with family at the bedside upon my arrival. Pt reports that he has been feeling better, but has only just had his NG clamped. Pt tolerating ice chips and sips and plans to increase diet once cleared by GI. Diarrhea still but only x1 episode today. Denies any other sx. Review of Systems Review of Systems: 12 systems were reviewed and are negativ e except for as per HPI. Exam Narrative: General: well appearing, appears stated age. HEENT: normocephalic, atraumatic. Mucous membranes moist. EOMI, PERRLA, bilateral sclera anicteric, no conjunctival injection. Neck supple without JVD, lymphadenopathy, or bruit. NG Respiratory: clear to ascultation bilaterally. No rales/rhonic/wheezes. Cardiovascular: Regular rate and rhythm, normal S1-S2 upon ascultation. No murmurs, rubs, or clicks. PMI is nondisplaced, capillary refill less than 3 second. Abdomen: Soft, round, no pulsatile masses, nondistended and nontender. No rebound, no guarding. No CVA tenderness, no hepatosplenomegaly. Hypoactive bowel sounds in all quadrants. No high pitch or tinkling sounds, resonant to percussion. Extremities: No cyanosis, clubbing, or edema present. Pulses are palpable 2/2. Active ROM to all four extremities. Neuro: Alert and orientated x 4. PERRLA. Cranial nerves 2-12 intact without focal deficit. Skin: Warm, dry, and intact, without rash, erythema, or lesion. Psych: pleasant, cooperative, normal speech, normal affect, no hallucinations, no dysarthia Objective Data Vital Signs Vital Signs: Vital Signs - 24 hr 12/21/24 17:18 12/21/24 19:44 12/21/24 20:10 Temperature 98.0 F 98.2 F Pulse Rate 93 87 75 Respiratory Rate 14 16 18 Blood Pressure 155/98 H 150/86 H 168/96 H Pulse Oximetry 96 100 94 12/22/24 04:57 Temperature 97.2 F L Pulse Rate 65 Respiratory Rate 16 Blood Pressure 142/74 H Pulse Oximetry 97 Intake/Output Intake/Output: Intake & Output 12/19/24 12/20/24 12/21/24 12/22/24 23:59 23:59 23:59 23:59 Intake Total 1000 789.6 Output Total 1100 Balance -100 789.6 Meds/Results Medications: Active Medications Generic Name Dose Route Start Last Admin Trade Name Freq PRN Reason Stop Dose Admin Enoxaparin Sodium 40 mg 12/22/24 09:00 12/22/24 08:59 Enoxaparin 40 Mg/0.4 Ml Syringe SUB-Q 40 mg DAILY IRENE Administration Hydralazine HCl 10 mg 12/21/24 21:26 Hydralazine Hcl 20 Mg/Ml Vial IV PUSH Q8H PRN Blood Pressure - High Hydromorphone HCl 0.5 mg 12/21/24 21:27 Hydromorphone Hcl Inj (*Crx) 1 Mg/Ml Syr IV PUSH Q3H PRN Pain Rated 7-10 Hydroxyzine HCl 25 mg 12/21/24 21:24 12/21/24 23:04 Hydroxyzine Hcl 50 Mg/Ml Vial IM 25 mg Q4H PRN Administration Itching Lactated Ringer's 1,000 mls @ 125 mls/hr 12/21/24 18:50 12/22/24 03:41 Lr - Lactated Ringers Iv IV CONT 125 mls/hr .Q8H IRENE Administration Ketorolac Tromethamine 15 mg 12/22/24 05:00 12/22/24 04:30 Ketorolac 15 Mg/Ml Vial (*Bkc) IV PUSH 15 mg Q6H IRENE Administration Ondansetron HCl 4 mg 12/21/24 18:46 Ondansetron Inj 4 Mg/2 Ml Vial IV PUSH Q4H PRN Nausea Radiology Results: ITS Impressions Abdomen/Pelvis CT 12/21/24 18:14 IMPRESSION: Probable enterocolitis, superimposed small bowel obstruction is suspected. Follow-up recommended to assess. Abdomen X-Ray 12/21/24 19:39 Impression: 1. Nasogastric tube in appropriate location Labs Labs: Laboratory Results - last 24 hr 12/21/24 12/21/24 12/22/24 17:35 17:50 05:46 WBC 7.9 4.2 L RBC 6.07 5.26 Hgb 17.7 15.3 Hct 51.4 45.6 MCV 84.7 86.7 MCH 29.2 29.1 MCHC 34.4 33.6 RDW 12.9 12.8 Plt Count 241 188 MPV 9.4 9.5 Immature Gran % (Auto) 0.4 0.2 Neut % (Auto) 75.0 H 60.4 Lymph % (Auto) 14.5 L 20.0 [place] % (Auto) 8.3 16.3 H Eos % (Auto) 1.4 2.6 Baso % (Auto) 0.4 0.5 Lymph # (Auto) 1.15 0.85 L [place] # (Auto) 0.7 H 0.7 H Eos # (Auto) 0.1 0.1 Baso # (Auto) 0.0 0.0 Abs Immat Gran (auto) 0.03 0.01 Absolute Neuts (auto) 6.0 2.6 Absolute Nucleated RBC 0.000 0.000 Nucleated RBC % 0.0 0.0 PT 13.4 INR 1.0 APTT 23.2 Sodium 138 136 L Potassium 3.8 3.7 Chloride 105 105 Carbon Dioxide 21 L 25 Anion Gap 12 6 BUN 12 13 Creatinine 1.27 1.30 1.22 Estim Creat Clear Calc 87 85 90 Estimated GFR > 60 59 > 60 Glucose 109 105 Lactic Acid 1.0 Calcium 9.3 8.0 L Total Bilirubin 0.6 AST 36 ALT 58 H Alkaline Phosphatase 60 Total Protein 8.6 H Albumin 4.6 Influenza A (RT-PCR) Negative Influenza B (RT-PCR) Negative RSV (RT-PCR) Negative SARS-CoV-2 RNA (RT-PCR) Negative Quality VTE Prophylaxis VTE prophylaxis: mechanical ordered and pharmacologic ordered
[2024-12-22 13:00] VITALS: O2SAT 96
[2024-12-22 14:00] VITALS: BP 143/81; PULSE 70; RESP 17; TEMP 36.4; O2SAT 97
[2024-12-22] MEDS: HYDROmorphone HCL INJ (*CRX) 1 MG/ML SYR 0.5 MG IV PUSH (16:26)
[2024-12-22 20:12] VITALS: BP 148/83; PULSE 68; RESP 16; TEMP 36.3; O2SAT 98
[2024-12-23] MEDS: LACTATED RINGERS 1,000 ML 125 ML IV CONT ×2 (04:11→12:16)
[2024-12-23] MEDS: KETOROLAC 15 MG/ML VIAL (*BKC) IV PUSH ×4 (05:19→22:01)
[2024-12-23 06:00] VITALS: BP 126/91; PULSE 69; RESP 18; TEMP 36; O2SAT 95
[2024-12-23 06:04] LABS: Hematocrit 43.1 % (42.0-52.0); Hemoglobin 14.5 g/dL (14.0-18.0); Mean Corpuscular HGB Conc 33.6 g/dl (32-36); Mean Corpuscular Hemoglobin 29.2 pg (26-34); Mean Corpuscular Volume 86.9 fl (80-100); Platelet Count Result 187 k/mm3 (150-375); Red Blood Count 4.96 M/mm3 (4.6-6.20); White Blood Count 4.1 K/mm3 (4.5-10.0)
[2024-12-23 06:47] LABS: Anion Gap 7 mmol/L (4-12); Blood Urea Nitrogen 11 mg/dL (9-20); Calcium 8.2 mg/dL (8.4-10.2); Carbon Dioxide 22 mmol/L (22-30); Chloride 107 mmol/L (98-107); Estimated CRCL calculation 91 ml/min; Estimated Glomerular Filt Rate > 60; Glucose 99 mg/dL (65-110); Potassium 4.0 mmol/L (3.4-5.0); Sodium 136 mmol/L (137-145)
[2024-12-23] MEDS: ENOXAPARIN 40 MG/0.4 ML SYRINGE SUB-Q (09:31)
--- NOTE | 2024-12-23 11:53 | P.PNGS_ITS ---
Progress Note: A&P Assessment and Plan (1) Small bowel obstruction: Code(s): K56.609 - Unspecified intestinal obstruction, unspecified as to partial versus complete obstruction Status: Acute Assessment and Plan: * Clinically improving. No obstructive symptoms. Patient having diarrhea, which goes more along with enterocolitis. * Will advance diet as tolerated. (2) Enterocolitis: Code(s): K52.9 - Noninfective gastroenteritis and colitis, unspecified Status: Acute Assessment and Plan: * Continue supportive care Plan I have discussed the patient's case and plan of care with Dr. Finch. Subjective Subjective Date/Time Seen: 12/23/24 11:53 Patient reports: tolerating liquids well, flatus and diarrhea Interval history: Patient still having some cramping lower abdominal pain that improves after defecation. He is passing flatus and reports having about 6 episodes of diarrhea overnight. No nausea or vomiting. No other complaints. Exam Const: General: comfortable and no acute distress GI: Inspection: non-distended GI Palp: Yes Soft to palpation, No Tenderness to palpation present (GI), No Guarding due to palpation present (GI) and No Rebound tenderness present Auscultation: normal bowel sounds Objective Data Vital Signs Vital Signs: Vital Signs - 24 hr 12/22/24 13:00 12/22/24 14:00 12/22/24 20:00 Temperature 97.6 F Pulse Rate 70 Respiratory Rate 17 Blood Pressure 143/81 H Pulse Oximetry 96 97 Oxygen Delivery Room Air Room Air 12/22/24 20:12 12/23/24 06:00 12/23/24 08:00 Temperature 97.3 F L 96.8 F L Pulse Rate 68 69 Respiratory Rate 16 18 Blood Pressure 148/83 H 126/91 H Pulse Oximetry 98 95 Oxygen Delivery Room Air Intake/Output Intake/Output: Intake & Output 12/20/24 12/21/24 12/22/24 12/23/24 23:59 23:59 23:59 23:59 Intake Total 1000 3325.4 1218.3 Output Total 1100 Balance -100 3325.4 1218.3 Meds/Results Medications: Active Medications Generic Name Dose Route Start Last Admin Trade Name Freq PRN Reason Stop Dose Admin Enoxaparin Sodium 40 mg 12/22/24 09:00 12/23/24 09:31 Enoxaparin 40 Mg/0.4 Ml Syringe SUB-Q 40 mg DAILY IRENE Administration Hydralazine HCl 10 mg 12/21/24 21:26 Hydralazine Hcl 20 Mg/Ml Vial IV PUSH Q8H PRN Blood Pressure - High Hydromorphone HCl 0.5 mg 12/21/24 21:27 12/22/24 16:26 Hydromorphone Hcl Inj (*Crx) 1 Mg/Ml Syr IV PUSH 0.5 mg Q3H PRN Administration Pain Rated 7-10 Hydroxyzine HCl 25 mg 12/21/24 21:24 12/22/24 21:34 Hydroxyzine Hcl 50 Mg/Ml Vial IM 25 mg Q4H PRN Administration Itching Lactated Ringer's 1,000 mls @ 125 mls/hr 12/21/24 18:50 12/23/24 04:11 Lr - Lactated Ringers Iv IV CONT 125 mls/hr .Q8H IRENE Administration Ketorolac Tromethamine 15 mg 12/22/24 05:00 12/23/24 10:06 Ketorolac 15 Mg/Ml Vial (*Bkc) IV PUSH 15 mg Q6H IRENE Administration Ondansetron HCl 4 mg 12/21/24 18:46 Ondansetron Inj 4 Mg/2 Ml Vial IV PUSH Q4H PRN Nausea Radiology Results: ITS Impressions Abdomen/Pelvis CT 12/21/24 18:14 IMPRESSION: Probable enterocolitis, superimposed small bowel obstruction is suspected. Follow-up recommended to assess. Abdomen X-Ray 12/21/24 19:39 Impression: 1. Nasogastric tube in appropriate location Labs Labs: Laboratory Results - last 24 hr 12/23/24 05:32 WBC 4.1 L RBC 4.96 Hgb 14.5 Hct 43.1 MCV 86.9 MCH 29.2 MCHC 33.6 RDW 12.9 Plt Count 187 MPV 9.7 Sodium 136 L Potassium 4.0 Chloride 107 Carbon Dioxide 22 Anion Gap 7 BUN 11 Creatinine 1.21 Estim Creat Clear Calc 91 Estimated GFR > 60 Glucose 99 Calcium 8.2 L
--- NOTE | 2024-12-23 12:35 | P.PNIM_ITS ---
Progress Note: A&P Assessment and Plan (1) Small bowel obstruction: Code(s): K56.609 - Unspecified intestinal obstruction, unspecified as to partial versus complete obstruction Status: Acute Assessment and Plan: Surgery consulted NPO IVF Waiting for return of bowel function Okay to clamp NG tube for walks 12/22: Per surg consult this AM: Exam is completely benign this morning, will clamp NG tube and hopefully remove later today, okay to have sips and ice chips wall NG is clamped, will start clears his NG out 12/23: NG out, pt tolerating CLD today, surg increased to soft diet. Will continue to watch overnight. Surg following. (2) Enterocolitis: Code(s): K52.9 - Noninfective gastroenteritis and colitis, unspecified Status: Acute Assessment and Plan: Likely viral 12/23: Per surg, likely cause of diarrhea (3) Essential (primary) hypertension: Code(s): I10 - Essential (primary) hypertension Status: Chronic Assessment and Plan: P.r.n. hydralazine until patient intake p.o. 12/22: 142/74 -Will restart pt losartan/hctz once non-NPO status 10/20: -Meds restarted today due to increasing PO tolerance Plan Watch pt sx overnight, likely D/C tomorrow via surg. Time Spent With Patient Time: 35 Subjective Date/time seen: 12/23/24 1059 Interval history: Pt resting comfortably in bed with family at the bedside upon my arrival. NG out today. Pt tolerating CLD. Diarrhea still today, multiple episodes overnight. Lower abd pain. Review of Systems Review of Systems: 12 systems were reviewed and are negativ e except for as per HPI. Exam Narrative: General: well appearing, appears stated age. HEENT: normocephalic, atraumatic. Mucous membranes moist. EOMI, PERRLA, bilateral sclera anicteric, no conjunctival injection. Neck supple without JVD, lymphadenopathy, or bruit. NG Respiratory: clear to ascultation bilaterally. No rales/rhonic/wheezes. Cardiovascular: Regular rate and rhythm, normal S1-S2 upon ascultation. No murmurs, rubs, or clicks. PMI is nondisplaced, capillary refill less than 3 second. Abdomen: Soft, round, no pulsatile masses, nondistended. No rebound, no guarding. No CVA tenderness, no hepatosplenomegaly. Hypoactive bowel sounds in all quadrants. No high pitch or tinkling sounds, resonant to percussion. TTP lower bilateral abd. Extremities: No cyanosis, clubbing, or edema present. Pulses are palpable 2/2. Active ROM to all four extremities. Neuro: Alert and orientated x 4. PERRLA. Cranial nerves 2-12 intact without focal deficit. Skin: Warm, dry, and intact, without rash, erythema, or lesion. Psych: pleasant, cooperative, normal speech, normal affect, no hallucinations, no dysarthia Objective Data Vital Signs Vital Signs: Vital Signs - 24 hr 12/22/24 13:00 12/22/24 14:00 12/22/24 20:00 Temperature 97.6 F Pulse Rate 70 Respiratory Rate 17 Blood Pressure 143/81 H Pulse Oximetry 96 97 Oxygen Delivery Room Air Room Air 12/22/24 20:12 12/23/24 06:00 12/23/24 08:00 Temperature 97.3 F L 96.8 F L Pulse Rate 68 69 Respiratory Rate 16 18 Blood Pressure 148/83 H 126/91 H Pulse Oximetry 98 95 Oxygen Delivery Room Air Intake/Output Intake/Output: Intake & Output 12/20/24 12/21/24 12/22/24 12/23/24 23:59 23:59 23:59 23:59 Intake Total 1000 3325.4 2218.3 Output Total 1100 Balance -100 3325.4 2218.3 Meds/Results Medications: Active Medications Generic Name Dose Route Start Last Admin Trade Name Freq PRN Reason Stop Dose Admin Enoxaparin Sodium 40 mg 12/22/24 09:00 12/23/24 09:31 Enoxaparin 40 Mg/0.4 Ml Syringe SUB-Q 40 mg DAILY IRENE Administration Hydralazine HCl 10 mg 12/21/24 21:26 Hydralazine Hcl 20 Mg/Ml Vial IV PUSH Q8H PRN Blood Pressure - High Hydromorphone HCl 0.5 mg 12/21/24 21:27 12/22/24 16:26 Hydromorphone Hcl Inj (*Crx) 1 Mg/Ml Syr IV PUSH 0.5 mg Q3H PRN Administration Pain Rated 7-10 Hydroxyzine HCl 25 mg 12/21/24 21:24 12/22/24 21:34 Hydroxyzine Hcl 50 Mg/Ml Vial IM 25 mg Q4H PRN Administration Itching Lactated Ringer's 1,000 mls @ 60 mls/hr 12/21/24 18:50 12/23/24 12:16 Lr - Lactated Ringers Iv IV CONT 125 mls/hr .[id number] IRENE Administration Ketorolac Tromethamine 15 mg 12/22/24 05:00 12/23/24 10:06 Ketorolac 15 Mg/Ml Vial (*Bkc) IV PUSH 15 mg Q6H IRENE Administration Ondansetron HCl 4 mg 12/21/24 18:46 Ondansetron Inj 4 Mg/2 Ml Vial IV PUSH Q4H PRN Nausea Radiology Results: ITS Impressions Abdomen/Pelvis CT 12/21/24 18:14 IMPRESSION: Probable enterocolitis, superimposed small bowel obstruction is suspected. Follow-up recommended to assess. Abdomen X-Ray 12/21/24 19:39 Impression: 1. Nasogastric tube in appropriate location Labs Labs: Laboratory Results - last 24 hr 12/23/24 05:32 WBC 4.1 L RBC 4.96 Hgb 14.5 Hct 43.1 MCV 86.9 MCH 29.2 MCHC 33.6 RDW 12.9 Plt Count 187 MPV 9.7 Sodium 136 L Potassium 4.0 Chloride 107 Carbon Dioxide 22 Anion Gap 7 BUN 11 Creatinine 1.21 Estim Creat Clear Calc 91 Estimated GFR > 60 Glucose 99 Calcium 8.2 L Quality VTE Prophylaxis VTE prophylaxis: mechanical ordered and pharmacologic ordered
[2024-12-23 14:00] VITALS: BP 138/79; PULSE 64; RESP 17; TEMP 36.3; O2SAT 100
[2024-12-23 21:32] VITALS: BP 129/83; PULSE 68; RESP 16; TEMP 36.4; O2SAT 98
[2024-12-24] MEDS: LACTATED RINGERS 1,000 ML 125 ML IV CONT (01:21)
[2024-12-24] MEDS: KETOROLAC 15 MG/ML VIAL (*BKC) IV PUSH ×2 (05:15→10:30)
[2024-12-24 06:00] VITALS: BP 131/73; PULSE 63; RESP 17; TEMP 36.6; O2SAT 99
[2024-12-24] MEDS: LOSARTAN POTASSIUM 50 MG TABLET PO (08:20)
[2024-12-24] MEDS: PANTOPRAZOLE 40 MG TABLET PO (08:20)
[2024-12-24] MEDS: ENOXAPARIN 40 MG/0.4 ML SYRINGE SUB-Q (08:20)
[2024-12-24] MEDS: LACTATED RINGERS 1,000 ML 60 ML IV CONT (09:36)
--- NOTE | 2024-12-24 10:10 | P.CDI_ITS ---
CDI Query Clarification Request Patient with a BMI of 42.3 please provide a diagnosis to accompany this finding: * Overweight * Obesity * Morbid Obesity * Other/Unknown <Zenaida Warner RN - Last Filed: 12/24/24 10:11> Patient with a BMI of 42.3 please provide a diagnosis to accompany this finding: * Obesity <Jackelyn Cummings APRN - Last Filed: 12/24/24 10:40>
--- NOTE | 2024-12-24 10:10 | WPDCDIQUERY2 ---
CDI Query Clarification Request Patient with a BMI of 42.3 please provide a diagnosis to accompany this finding: Overweight Obesity Morbid Obesity Other/Unknown <Zenaida Warner RN - Last Filed: 12/24/24 10:11> Patient with a BMI of 42.3 please provide a diagnosis to accompany this finding: Obesity <Jackelyn Cummings APRN - Last Filed: 12/24/24 10:40>
--- NOTE | 2024-12-24 10:22 | P.PNGS_ITS ---
Progress Note: A&P Assessment and Plan (1) Small bowel obstruction: Code(s): K56.609 - Unspecified intestinal obstruction, unspecified as to partial versus complete obstruction Status: Acute Assessment and Plan: * More likely gastroenteritis. Bowels are moving. Diarrhea improving. * Surgically stable for discharge. Will sign off. No follow-up needed with general surgery. (2) Enterocolitis: Code(s): K52.9 - Noninfective gastroenteritis and colitis, unspecified Status: Acute Assessment and Plan: * Continue supportive care Plan I have discussed the patient's case and plan of care with Dr. Finch. Subjective Subjective Date/Time Seen: 12/24/24 10:22 Patient reports: no new complaints, tolerating a regular diet, flatus and bowel movement Interval history: Patient feeling better today. No abdominal pain, he just reports some soreness. No nausea or vomiting. Still moving his bowels and his diarrhea has slowed. Exam GI: Inspection: non-distended GI Palp: Yes Soft to palpation, No Tenderness to palpation present (GI), No Guarding due to palpation present (GI) and No Rebound tenderness present Auscultation: normal bowel sounds Objective Data Vital Signs Vital Signs: Vital Signs - 24 hr 12/23/24 14:00 12/23/24 20:00 12/23/24 21:32 Temperature 97.3 F L 97.6 F Pulse Rate 64 68 Respiratory Rate 17 16 Blood Pressure 138/79 129/83 Pulse Oximetry 100 98 Oxygen Delivery Room Air 12/24/24 06:00 12/24/24 08:00 Temperature 97.9 F Pulse Rate 63 Respiratory Rate 17 Blood Pressure 131/73 Pulse Oximetry 99 Oxygen Delivery Room Air Intake/Output Intake/Output: Intake & Output 12/21/24 12/22/24 12/23/24 12/24/24 23:59 23:59 23:59 23:59 Intake Total 1000 3325.4 3758.3 2640 Output Total 1100 Balance -100 3325.4 3758.3 2640 Meds/Results Medications: Active Medications Generic Name Dose Route Start Last Admin Trade Name Freq PRN Reason Stop Dose Admin Acetaminophen 1,000 mg 12/23/24 12:52 Acetaminophen 500 Mg Tablet PO TID PRN louise Enoxaparin Sodium 40 mg 12/22/24 09:00 12/24/24 08:20 Enoxaparin 40 Mg/0.4 Ml Syringe SUB-Q 40 mg DAILY IRENE Administration Hydralazine HCl 10 mg 12/21/24 21:26 Hydralazine Hcl 20 Mg/Ml Vial IV PUSH Q8H PRN Blood Pressure - High Hydrochlorothiazide 12.5 mg 12/24/24 09:00 12/24/24 08:20 Hydrochlorothiazide 12.5 Mg Capsule PO 12.5 mg QAM IRENE Administration Hydromorphone HCl 0.5 mg 12/21/24 21:27 12/22/24 16:26 Hydromorphone Hcl Inj (*Crx) 1 Mg/Ml Syr IV PUSH 0.5 mg Q3H PRN Administration Pain Rated 7-10 Hydroxyzine HCl 25 mg 12/21/24 21:24 12/23/24 22:01 Hydroxyzine Hcl 50 Mg/Ml Vial IM 25 mg Q4H PRN Administration Itching Lactated Ringer's 1,000 mls @ 60 mls/hr 12/21/24 18:50 12/24/24 09:36 Lr - Lactated Ringers Iv IV CONT 60 mls/hr .[id number] IRENE Administration Ketorolac Tromethamine 15 mg 12/22/24 05:00 12/24/24 05:15 Ketorolac 15 Mg/Ml Vial (*Bkc) IV PUSH 15 mg Q6H IRENE Administration Losartan Potassium 50 mg 12/24/24 09:00 12/24/24 08:20 Losartan Potassium 50 Mg Tablet PO 50 mg QAM IRENE Administration Ondansetron HCl 4 mg 12/21/24 18:46 Ondansetron Inj 4 Mg/2 Ml Vial IV PUSH Q4H PRN Nausea Pantoprazole Sodium 40 mg 12/24/24 09:00 12/24/24 08:20 Pantoprazole 40 Mg Tablet PO 40 mg QAM IRENE Administration Radiology Results: ITS Impressions Abdomen/Pelvis CT 12/21/24 18:14 IMPRESSION: Probable enterocolitis, superimposed small bowel obstruction is suspected. Follow-up recommended to assess. Abdomen X-Ray 12/21/24 19:39 Impression: 1. Nasogastric tube in appropriate location
--- NOTE | 2024-12-24 10:35 | P.DS_ITS ---
DS: Admitting Diagnosis Discharge Date 12/24/2024 Admitting Diagnosis SBO vs. gastroenteritis DS: Discharge Diagnosis Discharge Diagnosis (1) Small bowel obstruction: Code(s): K56.609 - Unspecified intestinal obstruction, unspecified as to partial versus complete obstruction Status: Acute Assessment and Plan: Surgery consulted NPO IVF Waiting for return of bowel function Okay to clamp NG tube for walks 12/22: Per surg consult this AM: Exam is completely benign this morning, will clamp NG tube and hopefully remove later today, okay to have sips and ice chips wall NG is clamped, will start clears his NG out 12/23: NG out, pt tolerating CLD today, surg increased to soft diet. Will continue to watch overnight. Surg following. 12/24 Pt tolerating solids, denies pain. Surg OK with discharge. (2) Enterocolitis: Code(s): K52.9 - Noninfective gastroenteritis and colitis, unspecified Status: Acute Assessment and Plan: Likely viral 12/23: Per surg, likely cause of diarrhea (3) Essential (primary) hypertension: Code(s): I10 - Essential (primary) hypertension Status: Chronic Assessment and Plan: P.r.n. hydralazine until patient intake p.o. 12/22: 142/74 -Will restart pt losartan/hctz once non-NPO status 12/23: -Meds restarted today due to increasing PO tolerance Plan Pt to be discharged home with PCP f/u. DS: Summary Hospital Course Reason for hospitalization: SBO vs. gastroenteritis Hospital Course: 44-year-old male presents emergency department on the evening of 12/21 for evaluation for concern for small bowel obstruction. Patient does have significant history of bowel obstructions secondary to adhesions from hernia repairs as a child. Patient typically does feel improved after having NG tube placement. Patient's most recent bowel obstruction was approximately 2 years ago. Patient states over the last 2 days he has had worsening symptoms including nausea vomiting and has had some diarrhea stool. Patient does state that sometimes his episodes of enterocolitis do feel similar to bowel obstructions. CBC within normal limits, BMP within normal limits, AST 58, influenza A/B, RSV, COVID negative. CT abdomen pelvis show Probable enterocolitis, superimposed small bowel obstruction is suspected. Surgery is consulted. While inpt, pt had NG for bowel rest and decompression. NG was clamped the AM of 12/22 and pt tolerated this well and it was removed in the evening of 12/22. Pt also advanced diet as tolerated throughout his stay and eventually was able to hold down solids day of discharge, 12/24. Surgical team diff dx SBO vs viral enterocolitis (pt having diarrhea). Surgically stable for discharge and no need for general surgery f/u. Pt to f/u with his PCP and resume home meds. Status at Discharge Overall status at discharge: patient is progressing back to baseline Time Spent with Patient Time attestation: Total time spent providing and/or coordinating discharge services: 30 Exam Narrative: General: well appearing, appears stated age. HEENT: normocephalic, atraumatic. Mucous membranes moist. EOMI, PERRLA, bilateral sclera anicteric, no conjunctival injection. Neck supple without JVD, lymphadenopathy, or bruit. NG Respiratory: clear to ascultation bilaterally. No rales/rhonic/wheezes. Cardiovascular: Regular rate and rhythm, normal S1-S2 upon ascultation. No murmurs, rubs, or clicks. PMI is nondisplaced, capillary refill less than 3 second. Abdomen: Soft, round, no pulsatile masses, nondistended. No rebound, no guarding. No CVA tenderness, no hepatosplenomegaly. Hypoactive bowel sounds in all quadrants. No high pitch or tinkling sounds, resonant to percussion. Mild TTP lower bilateral abd. Extremities: No cyanosis, clubbing, or edema present. Pulses are palpable 2/2. Active ROM to all four extremities. Neuro: Alert and orientated x 4. PERRLA. Cranial nerves 2-12 intact without focal deficit. Skin: Warm, dry, and intact, without rash, erythema, or lesion. Psych: pleasant, cooperative, normal speech, normal affect, no hallucinations, no dysarthia DS: Data Data Completed and Pending Completed studies during hospitalization: Labs, CT Discharge Plan Discharge Attending physician on discharge: Weston Samano Consulting providers: Jackelyn Cummings Discharging Clinician: Jackelyn Cummings Anticipated Discharge Date/Time: 12/24/24 11:00 Patient Disposition: Home Activity: may shower Diet: regular Discharge Instructions: Continue to check your blood pressure and blood sugar at home if applicable. Ke ep your scheduled appts with your primary care provider and any specialist that you may see. Return to the emergency department if you develop sudden shortness of breath, chest pain, a fever of greater than 101.5, or nausea, vomiting, abd pain, or diarrhea that does not go away. Follow-up with your primary care provider within 1-2 weeks, they will want to be updated on your inpatient stay in the hospital. Thank you for choosing [facility] for your healthcare needs. Patient Instructions: Gastroenteritis (DC) Patient Language: Macedonian Stand Alone Forms: General Discharge Information Follow-up/Referrals: Reno Westbrook MD [Primary Care Provider, Family Practice] - 4 Weeks Discharge Medications: Continued esomeprazole magnesium [Nexium] 40 mg capsule,delayed release(DR/EC) 40 mg PO DAILY Qty: 90 3RF losartan-hydrochlorothiazide 50-12.5 mg tablet 1 tablet PO DAILY Qty: 90 3RF ibuprofen 800 mg tablet 800 mg PO TID PRN (Reason: pain) 7 Days Qty: 21 0RF acetaminophen 500 mg tablet 1,000 mg PO TID PRN (Reason: louise) 7 Days Qty: 42 0RF esomeprazole magnesium [Nexium 24HR] 20 mg capsule,delayed release(DR/EC) 20 mg PO DAILY Date of admission: 12/22/24 09:37 Primary Care Provider: Reno Westbrook Admitting Provider: Theodora Calderon Attending physician on admission: Theodora Calderon Condition: Stable Quality VTE Prophylaxis VTE prophylaxis: mechanical ordered and pharmacologic ordered Hospitalist MIPS Heart Failure (Exclusion) Patient has history of Heart Transplant or Left Ventricular Assistive Device?: No IF YES, STOP HERE Heart Failure (Qualifier) Patient has current or prior documentation of LVEF less than or equal to 40%, or mod/servere depressed LVSF?: No IF NO, STOP HERE
== END 2024-12-24 10:50 | disposition home or self-care (01) | DRG 392 ==
LOC: ANHED 19:00 → ANH3MEDSUR 19:09
PROVIDERS: Nurse Practitioner Gerontology; Admitting Provider Internal Medicine; Emergency Provider Emergency Medicine; PCP Family Medicine
DX: A08.4 Viral intestinal infection, unspecified (principal); Z68.41 Body mass index [BMI] 40.0-44.9, adult; Z20.822 Contact with and (suspected) exposure to COVID-19; I10 Essential (primary) hypertension; E66.9 Obesity, unspecified; K21.9 Gastro-esophageal reflux disease without esophagitis; Z90.49 Acquired absence of other specified parts of digestive tract
CPT/HCPCS: 36415; 74177; 80048; 80053; 83605; 85025; 85027; 85610; 85730; 87637; 96361; 96374; 96375; 96376; 99285; A9270; G0378; J1171; J1650; J1885; J2405; J3410; J7120; Q9967